=== PATIENT | male | born 1935 | race Caucasian/White ===

== ENCOUNTER 2017-12-02 08:22 | Emergency (ER) | payer MEDICARE, BC ==
[2017-12-02 08:52] VITALS: BP 132/66
--- NOTE | 2017-12-02 09:45 | UC ---
Elbow Pain - HPI Summary HPI Summary: 82 yo male lost balance and fell back onto bed last PM around sustained multiple skin tears no elbow joint pain last Td <10 yrs ago no hx DM - History of Current Complaint Chief Complaint: UCSkin Stated Complaint: S/P FALL LEFT ELBOW INJURY Time Seen by Provider: 12/02/17 09:06 Hx Obtained From: Patient Onset/Duration: Hours Pain Intensity: 0 Pain Scale Used: 0-10 Numeric Location Of Pain: Is Discrete @ Aggravating Factor(s): Movement Alleviating Factor(s): Rest Associated Signs And Symptoms: Positive: Bruising - Allergies/Home Medications Allergies/Adverse Reactions: Allergies Allergy/AdvReac Type Severity Reaction Status Date / Time No Known Allergies Allergy Verified 12/02/17 08:43 PMH/Surg Hx/FS Hx/Imm Hx Previously Healthy: Yes GI/ History: Diverticulitis - Surgical History Surgical History: None - Family History Known Family History: Positive: Hypertension - Social History Alcohol Use: "couple beers a day" Substance Use Type: None Smoking Status (MU): Never Smoked Tobacco - Immunization History Most Recent Tetanus Shot: "I haven't the slightest idea." Review of Systems Constitutional: Negative Skin: Bruising Eyes: Negative ENT: Negative Respiratory: Negative Cardiovascular: Negative Gastrointestinal: Negative Genitourinary: Negative Motor: Negative Neurovascular: Negative Musculoskeletal: Negative Neurological: Negative Psychological: Negative Is Patient Immunocompromised?: No All Other Systems Reviewed And Are Negative: Yes Physical Exam Triage Information Reviewed: Yes Appearance: Well-Appearing, No Pain Distress, Well-Nourished Vital Signs: Initial Vital Signs Temp 98.2 F 12/02/17 08:39 Pulse 66 12/02/17 08:39 Resp 14 12/02/17 08:39 BP 132/66 12/02/17 08:39 Pulse Ox 100 12/02/17 08:39 Vital Signs Reviewed: Yes Eyes: Positive: Conjunctiva Clear ENT: Positive: Hearing grossly normal. Negative: Nasal congestion, Nasal drainage, Tonsillar exudate, Trismus, Hoarse voice Neck: Positive: Supple, Nontender Respiratory: Positive: Lungs clear, Normal breath sounds, No respiratory distress Cardiovascular: Positive: RRR, No Murmur Bowel Sounds: Positive: Present Musculoskeletal Exam: Normal Musculoskeletal: Positive: ROM Intact, No Edema Neurological: Positive: Alert, Other: - tremors but no cogwheeling Skin Exam: Other - Multiple skin tears left arm proximal to elbow Procedures - Laceration/Wound Repair 1 Location: upper extremity Description: Linear Length, Depth and Shape: multiple skin tears with a total lenght of 12.5 cm Betadine Prep?: No Irrigated w/ Saline (ccs): 400 Laceration/Wound Explored: clean Closure: SteriStrips Elbow Pain Course/Dx - Differential Dx/Diagnosis Provider Diagnoses: skin tears left elbow. steristrip repair Discharge - Sign-Out/Discharge Documenting (check all that apply): Discharge/Admit/Transfer - Discharge Plan Condition: Stable Disposition: HOME Patient Education Materials: Hugh (ED) Referrals: No Primary Care Phys,NOPCP [Primary Care Provider] - Additional Instructions: leave strips on until they fall off keep dressing (wrap) on for 1-2 days return for any problems call for any questions see list for local MDs - Billing Disposition and Condition Condition: STABLE Disposition: Home
== END 2017-12-02 09:47 | disposition home or self-care (01) ==
LOC: UCCORT 08:22
DX: S50.902A Unspecified superficial injury of left elbow, initial encounter (principal); W18.39XA Other fall on same level, initial encounter; Y93.9 Activity, unspecified; Y92.003 Bedroom of unspecified non-institutional (private) residence as the place of occurrence of the external cause
CPT/HCPCS: 99202; G0463

== ENCOUNTER 2018-12-31 09:54 | Emergency (ER) | payer MEDICARE, BC ==
--- NOTE | 2018-12-31 10:13 | UC ---
[facility] General HPI - HPI Summary HPI Summary: Patient is a 83 year old male, who present today to the urgent care after she sustained a fall yesterday. He reports that he tripped on his feet at the tennis court and fell down scraping his left elbow and the left knee. Has some pain in the left elbow but denies much pain in the knee. He denies any other symptoms. Last tetanus shot was in 2012 - History of Current Complaint Stated Complaint: S/P FALL(12/30/18)-SCRAPES,BRUISES Time Seen by Provider: 12/31/18 10:10 Hx Obtained From: Patient - Allergy/Home Medications Allergies/Adverse Reactions: Allergies Allergy/AdvReac Type Severity Reaction Status Date / Time No Known Allergies Allergy Verified 12/31/18 10:24 Home Medications: Home Medications Aspirin 81 mg CHEW TAB* [Aspirin Low Dose TAB*] 81 mg PO DAILY 12/31/18 [ History Confirmed 12/31/18] Citalopram TAB* [CeleXA TAB*] 10 mg PO DAILY 12/31/18 [History Confirmed ] Donepezil HCl [Aricept] 5 mg PO DAILY 12/31/18 [History Confirmed 12/31/18] Terazosin HCl 10 mg PO DAILY 12/31/18 [History Confirmed 12/31/18] PMH/Surg Hx/FS Hx/Imm Hx - Additional Past Medical History Additional PMH: Past Medical History : BPH, dementia, depression, tremors of the hand Past Surgical History: No Past History of Procedure Family History : non contributory Social History : Daily beer, non smoker, no drug use. Lives with family his daughter for the past 1 year Previously Healthy: Yes - Surgical History Surgical History: None - Family History Known Family History: Positive: Hypertension, Non-Contributory - Social History Alcohol Use: "couple beers a day" Substance Use Type: None Smoking Status (MU): Never Smoked Tobacco - Immunization History Most Recent Tetanus Shot: "I haven't the slightest idea." Review of Systems All Other Systems Reviewed And Are Negative: Yes Constitutional: Positive: Negative Skin: Positive: Other - Skin avulsion of the left knee and left elbow Eyes: Positive: Negative ENT: Positive: Negative Respiratory: Positive: Negative Cardiovascular: Positive: Negative Gastrointestinal: Positive: Negative Genitourinary: Positive: Negative Motor: Positive: Negative Neurovascular: Positive: Negative Musculoskeletal: Positive: Arthralgia - Left elbow Neurological: Positive: Negative Psychological: Positive: Negative Is Patient Immunocompromised?: No Physical Exam - Summary Physical Exam Summary: Vital Signs Reviewed: Yes A+Ox3, no distress Eyes: Conjunctiva Clear ENT: Hearing grossly normal neck: supple Respiratory: Positive: No respiratory distress, No accessory muscle use Cardiovascular: skin color reflect adequate perfusion Musculoskeletal Exam: MENDEZ x 4 without difficulty Neurological: Positive: Alert, ambulatory without difficulty Psychological: Positive: Normal Response To Family Skin: Very Superficial Skin avulsion of the left lateral elbow is noted. No foreign body was identified after irrigation. No active bleeding. There is small skin avulsion/abrasion of the left lateral knee, no active bleeding is noted. Left elbow: Full range of motion, no swelling . some pain. Left knee: Full range of motion, no swelling. No pain Triage Information Reviewed: Yes Vital Signs Reviewed: Yes Diagnostics - Radiology No standard instances Radiology Interpretation Completed By: Radiologist - X-ray of the left elbow: Questionable cortical discontinuity along the coronoid process of the olecranon with a prominent anterior fat pad. Correlate with point tenderness. Repeat imaging in 7-10 days is recommended if pain persists. - EKG Summary of EKG Findings: X-ray of the left elbow :Questionable cortical discontinuity along the coronoid process of the olecranon with a. prominent anterior fat pad. Correlate with point tenderness. Repeat imaging in 7-10 days. is recommended if pain persists. Course/Dx - Course Course Of Treatment: During the visit today, we discussed the findings and further plan. Tetanus updated X-rays of the left elbow: Questionable cortical discontinuity along the coronoid process of the olecranon with a prominent anterior fat pad. Correlate with point tenderness. Repeat imaging in 7 -10 days is recommended if pain persists. Since the patient had left prior to the final report, plan to have the RN call him and discuss the the final x-ray report and have him follow up with orthopedics in a week Procedure note: Skin avulsion of the left elbow was approximated with skin adhesive and Steri-Strips. Skin avulsion of the left knee was debrided and dressed with antibiotics and nonadhesive dressing Wound care discussed We'll start prophylactic antibiotic, Keflex E prescribed to the pharmacy. He will follow-up with his primary care doctor in a week . Patient expressed understanding . - Diagnoses Provider Diagnosis: Avulsion of skin of left elbow, Avulsion, skin Discharge - Sign-Out/Discharge Documenting (check all that apply): Patient Departure All imaging exams completed and their final reports reviewed: No - Discharge Plan Condition: Stable Disposition: HOME Prescriptions: Cephalexin CAP* [Keflex CAP*] 500 mg PO BID 7 Days #14 cap Patient Education Materials: Laceration (DC), Skin Adhesive Care (ED) Referrals: Syeda Sellers NP [Primary Care Provider] - 1 Week Additional Instructions: Please start taking the medication as prescribed to the pharmacy . Wound care as discussed- avoid wetting . Monitor for any discharge or worsening Follow up with your primary care doctor in 1 week Return to Urgent care / ER if symptoms get worse. - Billing Disposition and Condition Condition: STABLE Disposition: Home
[2018-12-31 10:24] VITALS: BP 103/40
[2018-12-31] MEDS ORDERED: Tetan/Diph/Pertus SYR(Tdap)* 0.5 ML SYR(BOOSTRIX) use SYR contains LATEX IM ONE (10:54)
--- NOTE | 2018-12-31 12:05 | UC ---
- Progress Note Progress Note: Final x-ray report of the elbow: Questionable cortical discontinuity along the coronoid process of the olecranon with a prominent anterior fat pad. Correlate with point tenderness. Repeat imaging in 7 -10 days is recommended if pain persists. RN to call the patient and informed him of the results and recommend follow-up with orthopedics in 1 week Course/Dx - Diagnoses Provider Diagnoses: Avulsion of skin of left elbow, Avulsion, skin Discharge - Sign-Out/Discharge Documenting (check all that apply): Post-Discharge Follow Up All imaging exams completed and their final reports reviewed: No - Discharge Plan Condition: Stable Disposition: HOME Prescriptions: Cephalexin CAP* [Keflex CAP*] 500 mg PO BID 7 Days #14 cap Patient Education Materials: Laceration (DC), Skin Adhesive Care (ED) Referrals: Syeda Sellers NP [Primary Care Provider] - 1 Week Abi Rodriguez MD [Medical Doctor] - 1 Week Additional Instructions: Please start taking the medication as prescribed to the pharmacy . Wound care as discussed- avoid wetting . Monitor for any discharge or worsening Follow up with your primary care doctor in 1 week Return to Urgent care / ER if symptoms get worse. - Billing Disposition and Condition Condition: STABLE Disposition: Home
--- NOTE | 2018-12-31 12:05 | UC ---
- Progress Note Progress Note: Final x-ray report: Questionable cortical discontinuity along the coronoid process of the olecranon with a prominent anterior fat pad. Correlate with point tenderness. Repeat imaging in 7 -10 days is recommended if pain persists. Course/Dx - Diagnoses Provider Diagnoses: Avulsion of skin of left elbow, Avulsion, skin Discharge - Sign-Out/Discharge Documenting (check all that apply): Post-Discharge Follow Up All imaging exams completed and their final reports reviewed: Yes - Discharge Plan Condition: Stable Disposition: HOME Prescriptions: Cephalexin CAP* [Keflex CAP*] 500 mg PO BID 7 Days #14 cap Patient Education Materials: Laceration (DC), Skin Adhesive Care (ED) Referrals: Syeda Sellers NP [Primary Care Provider] - 1 Week Abi Rodriguez MD [Medical Doctor] - 1 Week Additional Instructions: Please start taking the medication as prescribed to the pharmacy . Wound care as discussed- avoid wetting . Monitor for any discharge or worsening Follow up with your primary care doctor in 1 week Return to Urgent care / ER if symptoms get worse. - Billing Disposition and Condition Condition: STABLE Disposition: Home
== END 2018-12-31 11:58 | disposition home or self-care (01) ==
LOC: UCCORT 09:54
DX: S81.012A Laceration without foreign body, left knee, initial encounter (principal); S51.012A Laceration without foreign body of left elbow, initial encounter; W01.0XXA Fall on same level from slipping, tripping and stumbling without subsequent striking against object, initial encounter; Y92.312 Tennis court as the place of occurrence of the external cause; Z23 Encounter for immunization
CPT/HCPCS: 12001; 90471; 90715; 99212; G0463

== ENCOUNTER 2019-06-11 18:43 | Emergency (ER) | payer MEDICARE, BC ==
--- NOTE | 2019-06-11 19:08 | ED ---
Head Injury - HPI Summary HPI Summary: The patient is an 83 y/o male arriving by ambulance to [facility] accompanied by family with a chief complaint of a mechanical fall tonight which resulted in an injury to the occiput. He reports that he was going to sit down on his walker, but he didnt realize there wasnt a seat, causing him to fall. He hit the posterior head, but he denies a headache now. He also denies any nausea or extremity pain, although he has an abrasion to the posterior left arm. There is unknown LOC, and the fall was unwitnessed. He is not currently on anticoagulants. He initially went to [facility], but the CT machine is not functioning at this time. PMHx: dementia, HTN, HLD. Nonsmoker, no EtOH, no substance use. Medications reviewed. Allergies noted. Level 5 Caveat secondary to dementia. - History Of Current Complaint Chief Complaint: EDHeadInjury Stated Complaint: FALL PER EMS Time Seen by Provider: 06/11/19 18:58 Hx Obtained From: Patient, Family/Craft Coordinator Hx From Patient Unobtainable Due To: Dementia - Level 5 Caveat Mechanism Of Injury: Fall From Height Of: - sitting position Onset/Duration: Started Hours Ago Severity Currently: Moderate Severity Initially: Mild Pain Intensity: 0 Pain Scale Used: 0-10 Numeric Location of Head Injury: Occipital Associated Signs And Symptoms: Other: - abrasion to left arm; Negative: nausea, headache, extremity pain; unknown LOC - Allergies/Home Medications Allergies/Adverse Reactions: Allergies Allergy/AdvReac Type Severity Reaction Status Date / Time No Known Allergies Allergy Verified 06/11/19 18:47 PMH/Surg Hx/FS Hx/Imm Hx Endocrine/Hematology History: Denies: Hx Diabetes Cardiovascular History: Reports: Hx Hypercholesterolemia, Hx Hypertension Neurological History: Reports: Hx Dementia Psychiatric History: Reports: Hx Depression - Surgical History Surgical History: Unable to Obtain/Confirm - patient level 5 caveat secondary to dementia Infectious Disease History: No Infectious Disease History: Denies: Traveled Outside the [place] in Last 30 Days - Family History Known Family History: Positive: Hypertension - Social History Alcohol Use: None Alcohol Amount: 2-4 beers qd Hx Substance Use: No Substance Use Type: Reports: None Hx Tobacco Use: No Smoking Status (MU): Never Smoked Tobacco Review of Systems Negative: Nausea Negative: Other - extremity pain Positive: Other - abrasion to posterior left arm Neurological: Other - injury to occipital head; unknown LOC Negative: Headache All Other Systems Reviewed And Are Negative: No - Comments Additional Review of Systems Comments: Level 5 Caveat secondary to dementia. Physical Exam - Summary Physical Exam Summary: Appearance: Well-appearing, Well-nourished, lying in bed comfortably Skin: Warm, dry, no obvious rash Eyes: sclera anicteric, no conjunctival pallor Head: No external signs of head trauma ENT: mucous membranes moist, pharynx appears normal Neck: Supple, nontender Respiratory: Clear to auscultation, no signs of respiratory distress Cardiovascular: Normal S1, S2. No murmurs. Normal distal pulses in tibial and radial bilaterally. Abdomen: Soft, nontender, normal active bowel sounds present Musculoskeletal: Normal, Strength/ROM Intact Neurological: A&Ox3, awake and alert, mentation is normal, speech is fluent and appropriate Psychiatric: affect is normal, does not appear anxious or depressed Triage Information Reviewed: Yes Vital Signs On Initial Exam: Initial Vitals Temp Pulse Resp BP Pulse Ox 98.0 F 66 15 132/85 97 06/11/19 18:44 06/11/19 18:44 06/11/19 18:44 06/11/19 18:44 06/11/19 18:44 Vital Signs Reviewed: Yes Completion Of Physical Exam Limited Due To: Dementia, Level 5 - Ely Coma Scale Best Eye Response: 4 - Spontaneous Best Motor Response: 6 - Obeys Commands Best Verbal Response: 5 - Oriented Coma Scale Total: 15 Procedures - Sedation Patient Received Moderate/Deep Sedation with Procedure: No Diagnostics - Vital Signs Vital Signs Temp Pulse Resp BP Pulse Ox 06/11/19 18:44 98.0 F 66 15 132/85 97 - Laboratory Lab Statement: Any lab studies that have been ordered have been reviewed, and results considered in the medical decision making process. - CT Brain CT CT Interpretation Completed By: Radiologist Summary of CT Findings: Impression: 1. No intracranial bleed, suspicious mass, or mass effect. Ventricles appear unremarkable. 2. There is low attenuation change in the white matter most consistent with chronic age related small vessel ischemic change. No acute territorial infarction is seen. These can be initially occult on head CT. ED physician has reviewed this report. Re-Evaluation - Re-Evaluation First Eval Re-Evaluation Time: 20:20 Comment: We discussed results and plan for discharge. Head Injury Course/Dx Course Of Treatment: 83 y/o male who has a history of dementia presents by ambulance from [facility] to [facility] after an unwitnessed mechanical fall in which the patient had attempted to sit on his walker but failed to realize there was not a seat there, resulting in a hit to the occipital head and unknown LOC. Denies any pain in the extremities or head now. Physical exam is negative for any external signs of head trauma. Brain CT is negative for acute findings for traumatic head injury. Patient will be discharged home. Family is agreeable with plan. - Diagnoses Provider Diagnoses: Fall Discharge ED - Sign-Out/Discharge Documenting (check all that apply): Patient Departure - Patient will be discharged home. - Discharge Plan Condition: Good Disposition: HOME Patient Education Materials: Fall Prevention for Older Adults (ED) Referrals: Syeda Sellers NP [Primary Care Provider] - Additional Instructions: The CT scan of your head was negative for any brain injury, so it is safe for you to return home. - Billing Disposition and Condition Condition: GOOD Disposition: Home - Attestation Statements Document Initiated by Rajendra: Yes Documenting Scribe: Ana Hillman Provider For Whom Rajendra is Documenting (Include Credential): Dr. Noam Morales MD Scribe Attestation: Ana Jules scribed for Dr. Noam Morales MD on 06/12/19 at 0125. Scribe Documentation Reviewed: Yes Provider Attestation: The documentation as recorded by the Ana jolley accurately reflects the service I personally performed and the decisions made by me, Dr. Noam Morales MD Status of Scribe Document: Viewed
[2019-06-11 20:29] VITALS: BP 132/63
== END 2019-06-11 20:29 | disposition home or self-care (01) ==
LOC: ED 18:43
DX: S09.90XA Unspecified injury of head, initial encounter (principal); S40.812A Abrasion of left upper arm, initial encounter; W19.XXXA Unspecified fall, initial encounter; Y93.89 Activity, other specified; Y92.9 Unspecified place or not applicable; F03.90 Unspecified dementia, unspecified severity, without behavioral disturbance, psychotic disturbance, mood disturbance, and anxiety; I10 Essential (primary) hypertension; F32.9 Major depressive disorder, single episode, unspecified; Z79.82 Long term (current) use of aspirin
CPT/HCPCS: 70450; 99283

== ENCOUNTER 2019-08-28 11:30 | Emergency (ER) | payer MEDICARE, BC ==
[2019-08-28] MEDS ORDERED: NS 0.9% 1000 ML** 1,000 ML IV ONE (11:43)
--- NOTE | 2019-08-28 11:43 | ED ---
Complex/Multi-Sys Presentation - HPI Summary HPI Summary: Patient is an 83 y/o M presenting to the ED via EMS arriving from [facility] for a chief complaint of seizure that occurred on 08/28/19. Per EMS, patient has confusion and complains of a headache and fatigue. 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 Patient also has a tremor of the bilateral UE that is unchanged from baseline. Patient denies fever, chest pain or pressure, shortness of breath, cough, abdominal pain, nausea, or vomiting. No aggravating or alleviating factors are reported. He does not recall if he has had dysuria or bladder infections in the past. PMHx is significant for Parkinson's disease and dementia, but has no history of seizures. A history of HTN, DM, KS, or CVA is denied. He denies tobacco use. - History Of Current Complaint Time Seen by Provider: 08/28/19 11:32 Hx Obtained From: Patient Onset/Duration: Sudden Onset, Resolved Timing: Constant Severity Currently: Moderate Severity Initially: Moderate Character: Typical Headache Aggravating Factor(s): Nothing Alleviating Factor(s): Nothing Associated Signs And Symptoms: Positive: Confusion, Headache. Negative: SOB, Cough, Chest Pain, Nausea, Vomiting, Abdominal Pain, Fever - Allergies/Home Medications Allergies/Adverse Reactions: Allergies Allergy/AdvReac Type Severity Reaction Status Date / Time No Known Allergies Allergy Verified 06/11/19 18:47 Home Medications: Home Medications Aspirin 81 mg CHEW TAB* [Aspirin Low Dose TAB*] 81 mg PO DAILY 12/31/18 [ History Confirmed 08/28/19] Citalopram TAB* [CeleXA TAB*] 10 mg PO DAILY 12/31/18 [History Confirmed ] Donepezil HCl [Aricept] 5 mg PO DAILY 12/31/18 [History Confirmed 08/28/19] Terazosin HCl 10 mg PO DAILY 12/31/18 [History Confirmed 08/28/19] Acetaminophen TAB* [Tylenol TAB*] 650 mg PO Q4H PRN 08/28/19 [History Confirmed 08/28/19] Bismuth Subsalicylate [Bismatrol] 15 ml PO Q4H PRN 08/28/19 [History Confirmed 08/28/19] Mag Hydrox/Aluminum Hyd/Simeth [Antacid Anti-Gas Liquid] 15 ml PO Q4H PRN [History Confirmed 08/28/19] Magnesium Hydroxide LIQ* [Milk of Magnesia LIQ*] 30 ml PO DAILY PRN 08/28/19 [ History Confirmed 08/28/19] Nitrofurantoin Macrocrystals* [Macrodantin 100 mg*] 100 mg PO BID 08/28/19 [ History Confirmed 08/28/19] guaiFENesin 100 mg/5 ml LIQ [Robitussin 100 mg/5ml LIQ] 10 ml PO Q4H PRN [History Confirmed 08/28/19] PMH/Surg Hx/FS Hx/Imm Hx Previously Healthy: Yes Endocrine/Hematology History: Denies: Hx Diabetes Cardiovascular History: Reports: Hx Hypercholesterolemia, Hx Hypertension Denies: Hx Myocardial Infarction Sensory History: Denies: Hx Legally Blind, Hx Deafness Opthamlomology History: Denies: Hx Legally Blind EENT History: Denies: Hx Deafness Neurological History: Reports: Hx Dementia, Other Neuro Impairments/Disorders - Parkinson's Disease Denies: Hx CVA Psychiatric History: Reports: Hx Depression - Surgical History Surgical History: None Surgery Procedure, Year, and Place: None Infectious Disease History: No Infectious Disease History: Denies: Traveled Outside the [place] in Last 30 Days - Family History Known Family History: Positive: Hypertension - Social History Occupation: Retired Lives: At [employer] Alcohol Use: None Alcohol Amount: 2-4 beers qd Hx Substance Use: No Substance Use Type: Reports: None Hx Tobacco Use: No Smoking Status (MU): Never Smoked Tobacco Review of Systems Positive: Fatigue. Negative: Fever Negative: Chest Pain Negative: Shortness Of Breath, Cough Negative: Abdominal Pain, Vomiting, Nausea Positive: Other - Positive tremor of the bilateral UE Neurological/Mental Status: Other - Positive confusion Positive: Headache All Other Systems Reviewed And Are Negative: Yes Physical Exam - Summary Physical Exam Summary: Constitutional: Well-developed, Well-nourished, Alert. (-) Distressed Skin: Warm, Dry HENT: Normocephalic; Atraumatic Eyes: Conjunctiva normal Neck: Musculoskeletal ROM normal neck. (-) JVD, (-) Stridor, (-) Tracheal deviation Cardio: Rhythm regular, rate normal, Heart sounds normal; Intact distal pulses; The pedal pulses are 2+ and symmetric. Radial pulses are 2+ and symmetric. (-) Murmur Pulmonary/Chest wall: Effort normal. (-) Respiratory distress, (-) Wheezes, (-) Rales Abd: Soft, (-) tenderness, (-) Distension, (-) Guarding, (-) Rebound Musculoskeletal: (-) Edema Lymph: (-) Cervical adenopathy Neuro: Awake, Oriented to person only, answering questions appropriately, no focal deficits, bilateral UE resting tremor noted Psych: Mood and affect Normal Triage Information Reviewed: Yes Vital Signs Reviewed: Yes - Ely Coma Scale Best Eye Response: 4 - Spontaneous Best Motor Response: 6 - Obeys Commands Best Verbal Response: 4 - Confused Coma Scale Total: 14 Glascow Coma Scale Comments: Baseline is dementia. Procedures - Sedation Patient Received Moderate/Deep Sedation with Procedure: No Diagnostics - Laboratory Result Diagrams: 08/28/19 12:14 08/28/19 12:14 Lab Statement: Any lab studies that have been ordered have been reviewed, and results considered in the medical decision making process. - CT Brain CT CT Interpretation Completed By: Radiologist Summary of CT Findings: Brain CT IMPRESSION: NO ACUTE INTRACRANIAL PATHOLOGY. CHRONIC SMALL VESSEL ISCHEMIC CHANGE. Reviewed by Dr. Arreola. - EKG 12:17 Cardiac Rate: Bradycardia - 52 BPM EKG Rhythm: Sinus Bradycardia ST Segment: Normal Ectopy: None Summary of EKG Findings: EKG at 12:17 shows sinus bradycardia with 52 BPM, PVCs , no STEMI. Dr. Arreola has reviewed and interpreted this EKG. Complex Multi-Symp Course/Dx Course Of Treatment: Patient is an 83 y/o M presenting to the ED via EMS arriving from [facility] for a chief complaint of seizure that occurred on . Per EMS, patient has confusion and complains of a headache and fatigue. Patient also has a tremor of the bilateral UE that is unchanged from baseline. Patient denies fever, chest pain or pressure, shortness of breath, cough, abdominal pain, nausea, or vomiting. PMHx is significant for Parkinson's disease and dementia, but has no history of seizures. A history of HTN, DM, KS, or CVA is denied. On exam, awake, oriented to person only, answering questions appropriately, no focal deficits, bilateral UE resting tremor noted. In the ED course, patient was given IV fluids. EKG at 12:17 shows sinus bradycardia with 52 BPM, PVCs, no STEMI. Brain CT IMPRESSION: NO ACUTE INTRACRANIAL PATHOLOGY. CHRONIC SMALL VESSEL ISCHEMIC CHANGE. All other abnormal lab results are not pertinent to current cc. Patient will be discharged with a diagnosis of dementia, generalzied weakness, and headache. Follow up with PCP in 2-3 days. - Diagnoses Provider Diagnoses: Dementia, Generalized weakness, Headache Discharge ED - Sign-Out/Discharge Documenting (check all that apply): Patient Departure - Discharge - Discharge Plan Condition: Stable Disposition: HOME Patient Education Materials: Weakness (ED) Referrals: Syeda Sellers NP [Primary Care Provider] - Additional Instructions: RETURN TO THE EMERGENCY DEPARTMENT FOR CHANGING OR WORSENING SYMPTOMS. Follow up with your primary care physician in 2-3 days. - Billing Disposition and Condition Condition: STABLE Disposition: Home - Attestation Statements Document Initiated by Elíasibe: Yes Documenting Scribe: Gunjan Morley Provider For Whom Scribe is Documenting (Include Credential): Louis Arreola DO Scribe Attestation: Gunjan Jules scribed for Louis Arreola DO on 08/28/19 at 1541. Scribe Documentation Reviewed: Yes Provider Attestation: The documentation as recorded by the Gunjan jolley accurately reflects the service I personally performed and the decisions made by Louis butcher DO Status of Scribadelia Document: Viewed
[2019-08-28 12:28] LABS: ABS Basophils 0.1 10^3/ul (0-0.2); ABS Lymphocytes 0.7 10^3/ul (1.0-4.8); ABS Monocytes 0.5 10^3/ul (0-0.8); ABS Neutrophils 7.4 10^3/ul (1.5-7.7); Eosinophil % 0.3 %; Hematocrit 33 % (42-52); Hemoglobin 10.6 g/dL (14.0-18.0); Lymphocyte % 8.1 %; Mean Corpuscular HGB Conc 32 g/dL (31-36); Mean Corpuscular Hemoglobin 21 pg (27-31); Mean Corpuscular Volume 66 fL (80-94); Mean Platelet Volume 7.9 fL (7.4-10.4); Nucleated Red Blood Cells % 0.1; Platelet Count 237 10^3/uL (150-450); Red Blood Count 4.97 10^6 /uL (4.18-5.48); Red Cell Distribution Width 16 % (10-15); White Blood Count 8.7 10^3/uL (3.5-10.8)
--- OUTSIDE RECORDS SUMMARY | 2019-08-28 12:29 | XMS REPORT | Continuity of Care Document ---
:1935 External Reference #:[id number] Author Name Jess Khan M.D. Address [address] [facility] [address] [place] [address] Care Team Providers Name Role Phone Syeda Sellers PNP-BC, FNP, Ibclc Care Team Information Television Agent [phone] - Family Problems Active Problems Provider Date Benign essential hypertension Syeda Sellers PNP-BC, FNP, Onset: 12/14/2017 Ibclc Hyperlipidemia Syeda Sellers PNP-BC, FNP, Onset: 12/14/2017 Ibclc Urinary tract infectious disease Jess Khan M.D. 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 Ibclc Social History Type Date Description Comments Sex Unknown ETOH Use Currently consumes alcohol ETOH Use Currently consumes alcohol drinking 2 beers daily Tobacco Use Reviewed: 12/14/17 Patient denies history of smoking Smoking Status Reviewed: 07/31/19 Patient denies history of smoking Allergies, Adverse Reactions, Alerts Description No Known Drug Allergies Medications Active Medications SIG Qnty Indications Ordering Provider Date Enable Bar To use at [place] 1units R53.1 Kelly Manzanares FNP 03/23/2019 Place for safety and fall prevention R29.6 Citalopram Hydrobromide 1 by mouth every 90tabs F33.0 Syeda Sellers, 12/26 10mg day PNP-BC, SAXOPHONE ASSEMBLER, Ibclc Tablets Terazosin HCL 1 by mouth every 90caps N40.1 Syeda Sellers, 10mg Capsules day PNP-BC, SAXOPHONE ASSEMBLER, Ibclc Donepezil HCL 1 by mouth every 90tabs F02.80 Syeda Sellers, 5mg Tablets day PNP-BC, SAXOPHONE ASSEMBLER, Ibclc Aspirin Adult Low Dose 1 by mouth every 90tabs Syeda Sellers, 81mg day PNP-BC, SAXOPHONE ASSEMBLER, Ibclc Tablets DR History Medications Lidocaine apply thin layer 60gm B02.9 Kelly Manzanares, 06/14/2019 - 4% Cream to right upper SAXOPHONE ASSEMBLER 06/29/2019 back lesions as needed for shingles pain Valacyclovir HCL 2 tabs by mouth 42tabs B02.9 Kelly Manzanares, 06/14/2019 - 500mg three times a day SAXOPHONE ASSEMBLER 06/29/2019 Tablets for 7 days. Medications Administered in Office Medication SIG Qnty Indications Ordering Provider Date PPD Family Nurse 03/08/2019 Injection Syeda Rosas PNP-BC, 12/26/2018 Injection SAXOPHONE ASSEMBLER, Ibclc Nena Smith MD 04/11/2018 Injection MARYCARMEN Family Nurse 04/11/2018 Injection Vitamin B12 Injection 1000 Syeda Sellers PNP-BC, 01/25/2018 mcg/Ml SAXOPHONE ASSEMBLER, Ibclc Injection Vitamin B12 Injection 1000 Syeda Sellers PNP-BC, 12/14/2017 mcg/Ml SAXOPHONE ASSEMBLER, Ibclc Injection Immunizations CPT Code Status Date Vaccine Lot # [id number] Given 12/26/2018 Pneumococcal Conjugate Vaccine 13 Valent For [id number] Intramuscular Use [id number] Given 04/07/2018 Influenza High Dose [id number] Vital Signs Date Vital Result Comment 07/31/2019 3:12pm BP Systolic Sitting Left Arm 110 mmHg BP Diastolic Sitting Left Arm 80 mmHg Body Temperature 97.6 F Heart Rate 70 /min Respiratory Rate 16 /min Height 70 inches 5'10" Weight 144.00 lb Pain Level 0 BMI (Body Mass Index) 20.7 kg/m2 BSA (Body Surface Area) 1.82 m2 [place] body weight in kilograms 75 kg 07/27/2019 1:22pm BP Systolic 120 mmHg BP Diastolic 74 mmHg Body Temperature 98.7 F Heart Rate 56 /min Respiratory Rate 18 /min Height 70 inches 5'10" Weight 151.00 lb BMI (Body Mass Index) 21.7 kg/m2 BSA (Body Surface Area) 1.85 m2 [place] body weight in kilograms 75 kg O2 % BldC Oximetry 96 % Results Test Acquired Date Facility Test Result H/L Range Note Urinalysis With 07/21/2019 [facility] Urine Color Yellow Yellow [address] [place] [address] [phone] Urine Clarity Slightly Cloudy Clear Urine Glucose - Dipstick NEGATIVE mg/dL Negative Urine Bilirubin - Dipstick NEGATIVE Negative Urine Ketone NEGATIVE mg/dL Negative Urine Specific [place] 1.016 Normal 1.010-1.030 Urine Blood TRACE Negative Urine PH 6.0 Low 6.5-7.5 Urine Protein - Dipstick TRACE mg/dL Negative Urine Urobilinogen - Dipstick < 2.0 mg/dL < 2.0 Urine Nitrite - Dipstick NEGATIVE Negative Urine Leuk Esterase LARGE Abnormal Negative Urine RBC 11-20 rbc/hpf Abnormal 0-2 Urine WBC >50 wbc/hpf 0-5 Urine Epithelial Cells MANY /lpf Abnormal None Seen Urine Bacteria MODERATE Abnormal None Seen Urine Mucus SMALL None Seen Source: URINE, CLEAN CAT <SEE NOTE> 2 Culture If 07/21/2019 [facility] Culture If CULTURE TO 3 Indicated Comment [address] Indicated Comment FOLLO <[place] [address] NOTE> [phone] Source: URINE, CLEAN CAT <SEE NOTE> 4 Urine 07/21/2019 [facility] Urine STAPHYLOCOCCUS A Abnormal [address] Culture <SEE NOTE> [place], [place] [id number] [phone] Quantity 10,000 - 50,000 <SEE NOTE> 6 Ast-GP67 07/21/2019 [facility] Penicillin G >=0.[address] [place] [address] [phone] Oxacillin <=0.25 Susceptible Tetracycline <=1 Susceptible Nitrofurantoin <=16 Susceptible Trimethoprim/Sulfamethoxazole <=10 Susceptible Gentamicin <=0.5 Susceptible Ciprofloxacin <=0.5 Susceptible Moxifloxacin <=0.25 Susceptible Levofloxacin 0.25 Susceptible Vancomycin <=0.5 Susceptible Comprehensive Metabolic 07/21/2019 [facility] Glucose 115 mg/dL High 74-[address] [place] [address] [phone] BUN 17 mg/dL Normal 7-18 Creatinine 0.9 mg/dL Normal 0.6-1.3 Glom Filtration Rate, Estimate >60 mL/min >60 If >60 mL/min >60 7 BUN/Creat 18.8 ratio Sodium 136 mmol/L Normal 136-145 Potassium 4.1 mmol/L Normal 3.5-5.1 Chloride 104 mmol/L Normal 98-107 Carbon Dioxide 30 mmol/L Normal 21-32 Anion Gap 2 mEq/L Low 8-16 Calcium 8.3 mg/dL Low 8.5-10.1 Total Protein 6.3 g/dL Low 6.4-8.2 Albumin 3.3 g/dL Low 3.4-5.0 Globulin 3.0 g/dL Normal 1.9-4.3 Alb/Glob 1.1 ratio Bilirubin,Total 0.6 mg/dL Normal 0.2-1.0 Sgot/Ast 14 U/L Low 15-37 8 SGPT/Alt 17 U/L Normal 12-78 Alkaline Phosphatase 58 U/L Normal 45-117 Laboratory test 07/21/2019 [facility] Troponin-I < 0.015 [address] ng/[place] [address] [phone] CBC W/Automated 07/21/2019 [facility] White Blood 5.7 K/uL Normal 3.4-[address] Count 0.5 [place] [address] [phone] Red Blood Count 5.05 M/uL Normal 4.20-5.80 Hemoglobin 10.7 gm/dL Low 12.8-17.0 Hematocrit 33.6 % Low 38.0-48.0 Mean Cell Volume 66.5 fl Low 80.0-96.0 Mean Corpuscular HGB 21.2 pg Low 27.0-33.0 Mean Corpuscular HGB Conc 31.8 g/dL Normal 31.7-36.0 Platelet Count 258 K/uL Normal 155-360 Red Cell Distri Width SD 39.4 fl Normal 36-51 Red Cell Distri Width %CV 17.1 % High 11.6-15.8 Mean Platelet Volume 9.4 fl Normal 6.6-10.6 Neut% 72.2 % Normal 33.0-73.0 Lymph % 14.9 % Low 20.0-42.0 [place] % 9.9 % Normal 0.0-10.0 Eo% 1.4 % Normal 0.0-6.6 Bas% 1.1 % Normal 0.0-1.1 Immature Grans 0.5 % Normal 0.0-5.0 NRBC % 0.0 /100WBC < 10/ 100 WBC Neut# 4.08 K/uL Normal 1.8-7.0 Lymph # 0.84 K/uL Low 1.0-4.0 [place] # 0.56 K/uL Normal 0.0-0.8 Eos # 0.08 K/uL Normal 0.0-0.5 Baso # 0.06 K/uL Normal 0.0-0.1 Immature Grans Absolute 0.03 K/uL NRBC # 0.00 K/uL Urine Dipstick 06/29/2019 [facility] Ua Leuko - Negative Ua Nitrite - Negative Ua Urobilinogen .2 0.2 - 1.0 E.U./dL Ua Protein - Negative Ua PH 6 Low 6.5-7.5 Ua Blood - Negative Ua Specific [place] 1.025 1.010-1.030 Ua Ketones - Negative Ua Bilirubin - Negative Ua Glucose - Negative RBC Morphology Only 06/21/2019 [facility] Poikilocytosis 2+ [address] [place] [address] [phone] Schistocytes 1+ Target Cells 1+ Ovalocytes 1+ Elliptocytes 0-1+ [place] Cells 0-1+ Acanthocytes 1+ Comment (SEE NOTE) 11 CBC W/Automated 06/21/2019 [facility] White Blood 6.5 K/uL Normal 3.4-10.[address] [place] [address] [phone] Red Blood Count 4.74 M/uL Normal 4.20-5.80 Hemoglobin 10.0 gm/dL Low 12.8-17.0 Hematocrit 31.0 % Low 38.0-48.0 Mean Cell Volume 65.4 fl Low 80.0-96.0 Mean Corpuscular HGB 21.1 pg Low 27.0-33.0 Mean Corpuscular HGB Conc 32.3 g/dL Normal 31.7-36.0 Platelet Count 297 K/uL Normal 155-360 Red Cell Distri Width SD 38.2 fl Normal 36-51 Red Cell Distri Width %CV 17.0 % High 11.6-15.8 Mean Platelet Volume 10.1 fl Normal 6.6-10.6 Neut% 74.6 % High 33.0-73.0 Lymph % 12.0 % Low 20.0-42.0 [place] % 10.5 % High 0.0-10.0 Eo% 1.5 % Normal 0.0-6.6 Bas% 0.8 % Normal 0.0-1.1 Immature Grans 0.6 % Normal 0.0-5.0 NRBC % 0.0 /100WBC < 10/ 100 WBC Neut# 4.84 K/uL Normal 1.8-7.0 Lymph # 0.78 K/uL Low 1.0-4.0 [place] # 0.68 K/uL Normal 0.0-0.8 Eos # 0.10 K/uL Normal 0.0-0.5 Baso # 0.05 K/uL Normal 0.0-0.1 Immature Grans Absolute 0.04 K/uL NRBC # 0.00 K/uL Laboratory test finding 06/21/2019 [facility] CK 57 U/L Normal 39-308 [address] [place] [address] [phone] Troponin-I < 0.015 ng/mL 12 Comprehensive 06/21/2019 [facility] Glucose 96 mg/dL Normal 74-106 Metabolic Panel [address] [place] [address] [phone] BUN 16 mg/dL Normal 7-18 Creatinine 0.9 mg/dL Normal 0.6-1.3 Glom Filtration Rate, Estimate >60 mL/min >60 If >60 mL/min >60 13 BUN/Creat 17.7 ratio Sodium 135 mmol/L Low 136-145 Potassium 4.4 mmol/L Normal 3.5-5.1 Chloride 104 mmol/L Normal 98-107 Carbon Dioxide 28 mmol/L Normal 21-32 Anion Gap 3 mEq/L Low 8-16 Calcium 8.1 mg/dL Low 8.5-10.1 Total Protein 6.1 g/dL Low 6.4-8.2 Albumin 2.9 g/dL Low 3.4-5.0 Globulin 3.2 g/dL Normal 1.9-4.3 Alb/Glob 0.9 ratio Bilirubin,Total 0.3 mg/dL Normal 0.2-1.0 Sgot/Ast 19 U/L Normal 15-37 SGPT/Alt 17 U/L Normal 12-78 Alkaline Phosphatase 67 U/L Normal 45-117 Urine Culture 06/21/2019 [facility] Urine Culture URETHRAL KENA [address] [place], [place] [id number] [phone] Quantity 10,000 - 50,000 <SEE NOTE> 14 Culture If 06/21/2019 [facility] Culture If CULTURE TO 15 Indicated Comment [address] [facility] Indicated Comment FOLLO <[place] [address] NOTE> [phone] Source: URINE, CLEAN CAT <SEE NOTE> 16 Urinalysis With 06/21/2019 [facility] Urine Color Light-Yellow Yellow Microscopic [address] [place] [address] [phone] Urine Clarity Slightly Cloudy Clear Urine Glucose - Dipstick NEGATIVE mg/dL Negative Urine Bilirubin - Dipstick NEGATIVE Negative Urine Ketone NEGATIVE mg/dL Negative Urine Specific [place] 1.014 Normal 1.010-1.030 Urine Blood NEGATIVE Negative Urine PH 6.0 Low 6.5-7.5 Urine Protein - Dipstick NEGATIVE mg/dL Negative Urine Urobilinogen - Dipstick < 2.0 mg/dL < 2.0 Urine Nitrite - Dipstick NEGATIVE Negative Urine Leuk Esterase LARGE Abnormal Negative Urine RBC 3-5 rbc/hpf 0-2 Urine WBC >50 wbc/hpf 0-5 Urine Mucus SMALL None Seen Source: URINE, CLEAN CAT <SEE NOTE> 17 1 POSSIBLE SYNCOPAL EPISODE 2 URINE, CLEAN CATCH 3 CULTURE TO FOLLOW 4 URINE, CLEAN CATCH 5 STAPHYLOCOCCUS AUREUS 6 10,000 - 50,000 CFU/mL 7 Note: Persistent reduction for 3 months or more in an eGFR <60 mL/min/1.73 m2 defines CKD. Patients with eGFR values >/=60 mL/min/1.73 m2 may also have CKD if evidence of persistent proteinuria is present. The original MDRD equation for estimated GFR is not valid for patients less than 18 years of age. Additional information may be found at www.kdoqi.org. 8 Values below the stated reference ranges of AST and ALT can be seen in normal populations. Clinical correlation is suggested. 9 0.0 - 0.045 ng/mL: Normal 0.046 - 0.5 ng/mL: Suggestive 0.6 - 1.5 ng/mL: Consistent 10 UNWITNESSED FALL 11 Instrument flagged sample for slide review. Less than 10% Bands seen, no other immature WBC's seen. Platelet estimate = NORMAL 12 0.0 - 0.045 ng/mL: Normal 0.046 - 0.5 ng/mL: Suggestive 0.6 - 1.5 ng/mL: Consistent 13 Note: Persistent reduction for 3 months or more in an eGFR <60 mL/min/1.73 m2 defines CKD. Patients with eGFR values >/=60 mL/min/1.73 m2 may also have CKD if evidence of persistent proteinuria is present. The original MDRD equation for estimated GFR is not valid for patients less than 18 years of age. Additional information may be found at www.kdoqi.org. 14 10,000 - 50,000 CFU/mL 15 CULTURE TO FOLLOW 16 URINE, CLEAN CATCH 17 URINE, CLEAN CATCH Procedures Date Code Description Status 11/28/2017 [id number] Colonoscopy Completed Medical Devices Description No Information Available Encounters Type Date Location Provider Dx Diagnosis Office Visit 07/27/2019 Family Medicine Syeda Sellers, N39.0 Urinary tract 1:10p [address] PNP-BC, SAXOPHONE ASSEMBLER, infection, site Ibclc not specified N40.1 Benign prostatic hyperplasia with lower urinary tract symp Office Visit 06/29/2019 [facility] [place] N39.0 Urinary tract 1:00p Medicine Fito Antonio, SAXOPHONE ASSEMBLER infection, site RD not specified B02.9 [place]oster without complications Office Visit 06/14/2019 9:00a [facility] Kelly Hussein, B02.[address] SAXOPHONE ASSEMBLER complications M54.6 Pain in thoracic spine R21 Rash and other nonspecific skin eruption Z91.81 History of falling Office Visit 03/10/2019 1:30p [facility] Family Nurse Z11.1 Encounter for [place] screening for respiratory tuberculosis Assessments Date Code Description Provider 07/31/2019 N39.0 Urinary tract infection, site not Jess Khan M.D. specified 07/31/2019 N40.1 Benign prostatic hyperplasia with Erin, Mahmoud, M.D. lower urinary tract symptoms 07/27/2019 N39.0 Urinary tract infection, site not Syeda Sellers PNP-BC, SAXOPHONE ASSEMBLER, specified Ibclc 07/27/2019 N40.1 Benign prostatic hyperplasia with Syeda Sellers PNP-BC, SAXOPHONE ASSEMBLER, lower urinary tract symptoms Ibclc 06/29/2019 N39.0 Urinary tract infection, site not Marisela Waite FNP specified 06/29/2019 B02.9 Zoster without complications Marisela [place] FNP 06/14/2019 B02.9 [place] without complications Kelly Manzanares FNP 06/14/2019 M54.6 Pain in thoracic spine Kelly Manzanares FNP 06/14/2019 R21 Rash and other nonspecific skin Kelly Manzanares FNP eruption 06/14/2019 Z91.81 History of falling Kelly Manzanares FNP 03/10/2019 Z11.1 Encounter for screening for Nena Jimenez MD respiratory tuberculosis 03/10/2019 Z11.1 Encounter for screening for Family Nurse respiratory tuberculosis 03/08/2019 Z11.1 Encounter for screening for Nena Jimenez MD respiratory tuberculosis 03/08/2019 Z11.1 Encounter for screening for Family Nurse respiratory tuberculosis Plan of Treatment No Information Available Functional Status Description No Information Available Mental Status Description No Information Available Referrals Refer to Reason for Referral Status Appt Date Jess Khan M.D. UTI's with hx of BPH Scheduled 07/31/2019 [address], [place] [address] [phone]
--- OUTSIDE RECORDS SUMMARY | 2019-08-28 12:29 | XMS REPORT | Continuity of Care Document ---
:1935 External Reference #:[id number] Author Name Jess Khan M.D. (transmitted by agent of provider Gloria Vega) Address [address] [facility] [address] [place] [address] Care Team Providers Name Role Phone Syeda Sellers PNP-BC, FNP, Ibclc Care Team Information Maitre D - Family Problems Active Problems Provider Date [...] Provider Date Enable Bar To use at [place] 1units R53.1 Kelly Manzanares FNP 03/23/2019 Place for safety and fall prevention R29.6 Citalopram Hydrobromide 1 by mouth every 90tabs F33.0 Syeda Sellers, 12/26 10mg day PNP-BC, [employer], Ibclc Tablets Terazosin HCL 1 by mouth every 90caps N40.1 Syeda Sellers, 10mg Capsules day PNP-BC, [employer], Ibclc Donepezil HCL 1 by mouth every 90tabs F02.80 Syeda Sellers, 5mg Tablets day PNP-BC, [employer], Ibclc Aspirin Adult Low Dose 1 by mouth every 90tabs Syeda Sellers, 81mg day PNP-BC, [employer], Ibclc Tablets DR [place]olis Medications Lidocaine apply thin layer 60gm B02.9 Kelly Manzanares, 06/14/2019 - 4% Cream to right upper [employer] 06/29/2019 back lesions as needed for shingles pain Valacyclovir HCL 2 tabs by mouth 42tabs B02.9 Kelly Manzanares, 06/14/2019 - 500mg three times a day [employer] 06/29/2019 Tablets for 7 days. Medications Administered in Office Medication SIG Qnty Indications Ordering Provider Date PPD Family Nurse 03/08/2019 Injection Syeda Rosas PNP-BC, 12/26/2018 Injection [employer], Ibclc Nena Smith MD 04/11/2018 Injection MARYCARMEN Family Nurse 04/11/2018 Injection Vitamin B12 Injection 1000 Syeda Sellers PNP-BC, 01/25/2018 mcg/Ml [employer], Ibclc Injection Vitamin B12 Injection 1000 Syeda Sellers PNP-BC, 12/14/2017 mcg/Ml [employer], Ibclc Injection Immunizations CPT Code Status Date Vaccine Lot # [id number] Given 12/26/2018 Pneumococcal Conjugate Vaccine 13 Valent For [id number] Intramuscular Use 99562 Given 04/07/2018 Influenza High Dose [id number] Vital Signs Date Vital Result Comment 07/31/2019 3:12pm BP Systolic Sitting Left Arm 110 mmHg BP Diastolic Sitting Left Arm 80 mmHg Body Temperature 97.6 F Heart Rate 70 /min Respiratory Rate 16 /min Height 70 inches 5'10" Weight 144.00 lb Pain Level 0 BMI (Body Mass Index) 20.7 kg/m2 BSA (Body Surface Area) 1.82 m2 [place] body weight in kilograms 75 kg 07/27/2019 1:22pm BP Systolic 120 mmHg BP Diastolic 74 mmHg Body Temperature 98.7 F Heart Rate 56 /min Respiratory Rate 18 /min Height 70 inches 5'10" Weight 151.00 lb BMI (Body Mass Index) 21.7 kg/m2 BSA (Body Surface Area) 1.85 m2 [place] body weight in kilograms 75 kg O2 % BldC Oximetry 96 % Results Test Acquired Date Facility Test Result H/L Range Note Urine Dipstick 07/31/2019 [facility] In[facility] Ua Color Yellow Yellow Ua Clarity Clear Clear Ua Leuko Negative Negative Ua Nitrite Negative Negative Ua Urobilinogen 0.2 0.2 - 1.0 E.U./dL Ua Protein 15 High Negative Ua PH 6.0 Low 6.5-7.5 Ua Blood Negative Negative Ua Specific [place] 1.025 1.010-1.030 Ua Ketones Negative Negative Ua Bilirubin Negative Negative Ua Glucose Negative Negative Urine Culture 07/31/2019 [facility] Urine Culture NO GROWTH: 1, [address] FINAL <[place] [address] NOTE> [phone] CBC 07/21/2019 [facility] White Blood 5.7 K/uL Normal 3.4-1 3 W/Automated [address] Count 0.5 [place] [address] [phone] Red Blood Count 5.05 M/uL Normal 4.20-5.80 [...] 33.0-73.0 Lymph % 14.9 % Low 20.0-42.0 [place] % 9.9 % Normal 0.0-10.0 Eo% 1.4 % Normal 0.0-6.6 Bas% 1.1 % Normal 0.0-1.1 Immature Grans 0.5 % Normal 0.0-5.0 NRBC % 0.0 /100WBC < 10/ 100 WBC Neut# 4.08 K/uL Normal 1.8-7.0 Lymph # 0.84 K/uL Low 1.0-4.0 [place] # 0.56 K/uL Normal 0.0-0.8 Eos # 0.08 K/uL Normal 0.0-0.5 Baso # 0.06 K/uL Normal 0.0-0.1 Immature Grans Absolute 0.03 K/uL NRBC # 0.00 K/uL Laboratory test 07/21/2019 [facility] Troponin-I < 0.015 [address] ng/[place] [address] [phone] Comprehensive 07/21/2019 [facility] Glucose 115 mg/dL High 74-106 Metabolic Panel [address] [place] [address] [phone] BUN 17 mg/dL Normal 7-18 Creatinine 0.9 mg/dL Normal 0.6-1.3 Glom Filtration Rate, Estimate >60 mL/min >60 If >60 mL/min >60 5 BUN/Creat 18.8 ratio Sodium 136 mmol/L Normal [...] Normal 0.2-1.0 Sgot/Ast 14 U/L Low 15-37 6 SGPT/Alt 17 U/L Normal 12-78 Alkaline Phosphatase 58 U/L Normal 45-117 Ast-GP67 07/21/2019 [facility] Penicillin G >=0.[address] [place] [address] [phone] Oxacillin <=0.25 Susceptible Tetracycline <=1 Susceptible Nitrofurantoin <=16 Susceptible Trimethoprim/Sulfamethoxazole <=10 Susceptible Gentamicin <=0.5 Susceptible Ciprofloxacin <=0.5 Susceptible Moxifloxacin <=0.25 Susceptible Levofloxacin 0.25 Susceptible Vancomycin <=0.5 Susceptible Urine 07/21/2019 [facility] Urine STAPHYLOCOCCUS A Abnormal [address] Culture <SEE NOTE> [place] [address] [phone] Quantity 10,000 - 50,000 <SEE NOTE> 8 Culture If 07/21/2019 [facility] Culture If CULTURE TO 9 Indicated Comment [address] Indicated Comment FOLLO <[place] [address] NOTE> [phone] Source: URINE, CLEAN CAT <SEE NOTE> 10 Urinalysis With 07/21/2019 [facility] Urine Color Yellow Yellow Microscopic [address] [place] [address] [phone] Urine Clarity Slightly Cloudy Clear Urine Glucose - Dipstick NEGATIVE mg/dL Negative Urine Bilirubin - Dipstick NEGATIVE Negative Urine Ketone NEGATIVE mg/dL Negative Urine Specific [place] 1.016 Normal 1.010-1.030 Urine Blood TRACE Negative [...] Seen Source: URINE, CLEAN CAT <SEE NOTE> 11 Urine Dipstick 06/29/2019 [facility] Inhouse Ua Leuko - Negative Ua Nitrite - Negative Ua Urobilinogen .2 0.2 - 1.0 E.U./dL Ua Protein - Negative Ua PH 6 Low 6.5-7.5 Ua Blood - Negative Ua Specific [place] 1.025 1.010-1.030 Ua Ketones - Negative Ua Bilirubin - Negative Ua Glucose - Negative RBC Morphology Only 06/21/2019 [facility] Poikilocytosis 2+ [address] [place] [address] [phone] Schistocytes 1+ Target Cells 1+ Ovalocytes 1+ Elliptocytes 0-1+ Sebastian Cells 0-1+ Acanthocytes 1+ Comment (SEE NOTE) 13 CBC W/Automated 06/21/2019 [facility] White Blood 6.5 K/uL Normal 3.4-10.[address] [place] [address] [phone] Red Blood Count 4.74 M/uL Normal 4.20-5.80 [...] 33.0-73.0 Lymph % 12.0 % Low 20.0-42.0 [place] % 10.5 % High 0.0-10.0 Eo% 1.5 % Normal 0.0-6.6 Bas% 0.8 % Normal 0.0-1.1 Immature Grans 0.6 % Normal 0.0-5.0 NRBC % 0.0 /100WBC < 10/ 100 WBC Neut# 4.84 K/uL Normal 1.8-7.0 Lymph # 0.78 K/uL Low 1.0-4.0 [place] # 0.68 K/uL Normal 0.0-0.8 Eos # 0.10 K/uL Normal 0.0-0.5 Baso # 0.05 K/uL Normal 0.0-0.1 Immature Grans Absolute 0.04 K/uL NRBC # 0.00 K/uL Laboratory test finding 06/21/2019 [facility] CK 57 U/L Normal 39-[address] [place] [address] [phone] Troponin-I < 0.015 ng/mL 14 Comprehensive 06/21/2019 [facility] Glucose 96 mg/dL Normal 74-106 Metabolic Panel [address] [place], [place] [id number] [phone] BUN 16 mg/dL Normal 7-18 Creatinine 0.9 mg/dL Normal 0.6-1.3 Glom Filtration Rate, Estimate >60 mL/min >60 If >60 mL/min >60 15 BUN/Creat 17.7 ratio Sodium 135 mmol/L Low [...] 67 U/L Normal 45-117 Urine Culture 06/21/2019 [facility] Urine Culture [address]RE[address]AL KENA [address] [place], [place] [address] [phone] Quantity 10,000 - 50,000 <SEE NOTE> 16 Culture If 06/21/2019 [facility] Culture If CULTURE TO 17 Indicated Comment [address] Indicated Comment FOLLO <[place] [address] NOTE> [phone] Source: URINE, CLEAN CAT <SEE NOTE> 18 Urinalysis With 06/21/2019 [facility] Urine Color Light-Yellow Yellow Microscopic [address] [place], [place] [id number] [phone] Urine Clarity Slightly Cloudy Clear Urine Glucose - Dipstick NEGATIVE mg/dL Negative Urine Bilirubin - Dipstick NEGATIVE Negative Urine Ketone NEGATIVE mg/dL Negative Urine Specific [place] 1.014 Normal 1.010-1.030 Urine Blood NEGATIVE Negative Urine PH 6.0 Low 6.5-7.5 Urine Protein - Dipstick NEGATIVE mg/dL Negative Urine Urobilinogen - Dipstick < 2.0 mg/dL < 2.0 Urine Nitrite - Dipstick NEGATIVE Negative Urine Leuk Esterase LARGE Abnormal Negative Urine RBC 3-5 rbc/hpf 0-2 Urine WBC >50 wbc/hpf 0-5 Urine Mucus SMALL None Seen Source: URINE, CLEAN CAT <SEE NOTE> 19 1 N39.0 2 NO GROWTH: FINAL REPORT 3 POSSIBLE SYNCOPAL EPISODE 4 0.0 - 0.045 ng/mL: Normal 0.046 - 0.5 ng/mL: Suggestive 0.6 - 1.5 ng/mL: Consistent 5 Note: Persistent reduction for 3 months or more in an eGFR <60 mL/min/1.73 m2 defines CKD. Patients with eGFR values >/=60 mL/min/1.73 m2 may also have CKD if evidence of persistent proteinuria is present. The original MDRD equation for estimated GFR is not valid for patients less than 18 years of age. Additional information may be found at www.kdoqi.org. 6 Values below the stated reference ranges of AST and ALT can be seen in normal populations. Clinical correlation is suggested. 7 STAPHYLOCOCCUS AUREUS 8 10,000 - 50,000 CFU/mL 9 CULTURE TO FOLLOW 10 URINE, CLEAN CATCH 11 URINE, CLEAN CATCH 12 UNWITNESSED FALL 13 Instrument flagged sample for slide review. Less than 10% Bands seen, no other immature WBC's seen. Platelet estimate = NORMAL 14 0.0 - 0.045 ng/mL: Normal 0.046 - 0.5 ng/mL: Suggestive 0.6 - 1.5 ng/mL: Consistent 15 Note: Persistent reduction for 3 months or more in an eGFR <60 mL/min/1.73 m2 defines CKD. Patients with eGFR values >/=60 mL/min/1.73 m2 may also have CKD if evidence of persistent proteinuria is present. The original MDRD equation for estimated GFR is not valid for patients less than 18 years of age. Additional information may be found at www.kdoqi.org. 16 10,000 - 50,000 CFU/mL 17 CULTURE TO FOLLOW 18 URINE, CLEAN CATCH 19 URINE, CLEAN CATCH Procedures Date Code Description Status 07/31/2019 55064 Measurement Post Voiding Residual Urine By Completed Ultrasound,Non-Imaging 11/28/2017 77793694 Colonoscopy Completed Medical Devices Description No Information Available Encounters Type Date Location Provider Dx Diagnosis Office Visit 07/31/2019 Urology Jess Khan, N39.0 Urinary tract 3:15p M.D. infection, site not specified N40.1 Benign prostatic hyperplasia with lower urinary tract symp Office Visit 07/27/2019 1:10p Family Medicine Syeda Sellers, N39.[address] PNP-BC, [employer], infection, site Ibclc not specified N40.1 Benign prostatic hyperplasia with lower urinary tract symp Office Visit 06/29/2019 Family Ravindra, N39.0 Urinary tract 1:00p Medicine [place] ANN MARIE Antonio infection, site RD not specified B02.9 [place] without complications Office Visit 06/14/2019 9:00a [facility] Medicine Kelly Manzanares, B02.[address] [employer] complications M54.6 Pain in thoracic spine R21 Rash and other nonspecific skin eruption Z91.81 History of falling Office Visit 03/10/2019 1:30p [facility] Family Nurse Z11.[address] screening for respiratory tuberculosis Assessments Date Code Description Provider 07/31/2019 N39.0 Urinary tract infection, site not Jess Khan M.D. specified 07/31/2019 N40.1 Benign prostatic hyperplasia with Jess Khan M.D. lower urinary tract symptoms 07/27/2019 N39.0 Urinary tract infection, site not Syeda Sellers PNP-BC, [employer], specified Ibclc 07/27/2019 N40.1 Benign prostatic hyperplasia with Syeda Sellers PNP-BC, [employer], lower urinary tract symptoms Ibclc 06/29/2019 N39.0 Urinary tract infection, site not Marisela Waite, [employer] specified 06/29/2019 B02.9 Zoster without complications Marisela [...] Family Nurse respiratory tuberculosis Plan of Treatment Future Appointment(s):08/31/2019 1:30 pm - Jess Khan M.D. at Urology Functional Status Description No Information Available Mental Status Description No Information Available Referrals Refer to Dr Reason for Referral Status Appt Date Jess Khan M.D. UTI's with hx of BPH Scheduled 07/31/2019 [address], [place] [address] [phone]
--- OUTSIDE RECORDS SUMMARY | 2019-08-28 12:29 | XMS REPORT | Continuity of Care Document ---
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 Problems Active Problems Provider Date Benign essential hypertension Syeda Sellers PNP-BC, FNP, Onset: 12/14/2017 Ibclc Hyperlipidemia Syeda Sellers PNP-BC, FNP, Onset: 12/14/2017 Ibclc Gastroesophageal reflux disease Syeda Sellers PNP-BC, FNP, Onset: 12/14/2017 Ibclc Cobalamin deficiency Syeda Sellers PNP-BC, FNP, Onset: 12/14/2017 Ibclc Dementia Syeda Sellers PNP-BC, FNP, Onset: 12/14/2017 Ibclc Benign prostatic hypertrophy with Sydea Sellers PNP-BC, FNP, Onset: 2017 outflow obstruction [...] Provider Date Enable Bar To use at [place] 1units R53.1 Kelly Manzanares FNP 03/23/2019 Place for safety and fall prevention R29.6 Citalopram Hydrobromide 1 by mouth every 90tabs F33.0 Syeda Sellers, 12/26 10mg day ANN MARIE SEE, Ibclc Tablets Terazosin HCL 1 by mouth every 90caps N40.1 Syeda Sellers, 10mg Capsules day PNP-BC, [employer], Ibclc Donepezil HCL 1 by mouth every 90tabs F02.80 Syeda Sellers, 5mg Tablets day PNP-BC, [employer], Ibclc Aspirin Adult Low Dose 1 by mouth every 90tabs Syeda Sellers, 81mg day PNP-BC, [employer], Ibclc Tablets DR History Medications Lidocaine apply thin layer 60gm B02.9 Kelly Manzanares, 06/14/2019 - 4% Cream to right upper [employer] 06/29/2019 back lesions as needed for shingles pain Valacyclovir HCL 2 tabs by mouth 42tabs B02.9 Kelly Manzanares, 06/14/2019 - 500mg three times a day [employer] 06/29/2019 Tablets for 7 days. Medications Administered in Office Medication SIG Qnty Indications Ordering Provider Date PPD Family Nurse 03/08/2019 Injection Syeda Rosas PNP-BC, 12/26/2018 Injection [employer], Ibclc Nena Smith MD 04/11/2018 Injection PPD Family Nurse 04/11/2018 Injection Vitamin B12 Injection 1000 Syeda Sellers PNP-BC, 01/25/2018 mcg/Ml [employer], Ibclc Injection Vitamin B12 Injection 1000 Syeda Sellers PNP-BC, 12/14/2017 mcg/Ml [employer], Ibclc Injection Immunizations CPT Code Status Date Vaccine Lot # [id number] Given 12/26/2018 Pneumococcal Conjugate Vaccine 13 Valent For [id number] Intramuscular Use 68934 Given 04/07/2018 Influenza High Dose [id number] Vital Signs Date Vital Result Comment 07/27/2019 1:22pm BP Systolic 120 mmHg BP Diastolic 74 mmHg Body Temperature 98.7 F Heart Rate 56 /min Respiratory Rate 18 /min Height 70 inches 5'10" Weight 151.00 lb BMI (Body Mass Index) 21.7 kg/m2 BSA (Body Surface Area) 1.85 m2 [place] body weight in kilograms 75 kg O2 % BldC Oximetry 96 % 06/29/2019 12:55pm BP Systolic Sitting Left Arm 108 mmHg BP Diastolic Sitting Left Arm 62 mmHg Body Temperature 98.0 F Heart Rate 53 /min Respiratory Rate 18 /min Weight 150.00 lb Results Test Acquired Date Facility Test Result H/L Range Note Urinalysis With 07/21/2019 [facility] Urine Color Yellow Yellow 1 Microscopic [address] [place], [place] [id number] [phone] Urine Clarity Slightly Cloudy Clear Urine Glucose - Dipstick NEGATIVE mg/dL Negative Urine Bilirubin - Dipstick NEGATIVE Negative Urine Ketone NEGATIVE mg/dL Negative Urine Specific [place] 1.016 Normal 1.010-1.030 Urine Blood TRACE Negative [...] CAT <SEE NOTE> 2 Culture If 07/21/2019 [facility] Culture If CULTURE TO 3 Indicated Comment [address] [facility] Indicated Comment FOLLO <[place] [address] NOTE> [phone] Source: URINE, CLEAN CAT <SEE NOTE> 4 Urine 07/21/2019 [facility] Urine STAPHYLOCOCCUS A Abnormal 5 Culture [address] [facility] Culture <SEE NOTE> [place] [address] [phone] Quantity 10,000 - 50,000 <SEE NOTE> 6 Ast-GP67 07/21/2019 [facility] Penicillin G >=0.5 Resistant [address] [place] [address] [phone] Oxacillin <=0.25 Susceptible Tetracycline <=1 Susceptible Nitrofurantoin <=16 Susceptible Trimethoprim/Sulfamethoxazole <=10 Susceptible Gentamicin <=0.5 Susceptible Ciprofloxacin <=0.5 Susceptible Moxifloxacin <=0.25 Susceptible Levofloxacin 0.25 Susceptible Vancomycin <=0.5 Susceptible Comprehensive Metabolic 07/21/2019 [facility] Glucose 115 mg/dL High 74-106 Panel [address] [place], [place] [address] [phone] BUN 17 mg/dL Normal 7-18 Creatinine 0.9 [...] 58 U/L Normal 45-117 Laboratory test 07/21/2019 [facility] Troponin-I < 0.015 [address] ng/[place] [address] [phone] CBC W/Automated 07/21/2019 [facility] White Blood 5.7 K/uL Normal 3.4-[address] Count 0.5 [place] [address] [phone] Red Blood Count 5.05 M/uL Normal 4.20-5.80 [...] 33.0-73.0 Lymph % 14.9 % Low 20.0-42.0 [place] % 9.9 % Normal 0.0-10.0 Eo% 1.4 % Normal 0.0-6.6 Bas% 1.1 % Normal 0.0-1.1 Immature Grans 0.5 % Normal 0.0-5.0 NRBC % 0.0 /100WBC < 10/ 100 WBC Neut# 4.08 K/uL Normal 1.8-7.0 Lymph # 0.84 K/uL Low 1.0-4.0 [place] # 0.56 K/uL Normal 0.0-0.8 Eos # 0.08 K/uL Normal 0.0-0.5 Baso # 0.06 K/uL Normal 0.0-0.1 Immature Grans Absolute 0.03 K/uL NRBC # 0.00 K/uL Urine Dipstick 06/29/2019 [facility] In[facility] Ua Leuko - Negative Ua Nitrite - Negative Ua Urobilinogen .2 0.2 - 1.0 E.U./dL Ua Protein - Negative Ua PH 6 Low 6.5-7.5 Ua Blood - Negative Ua Specific [place] 1.025 1.010-1.030 Ua Ketones - Negative Ua Bilirubin - Negative Ua Glucose - Negative RBC Morphology Only 06/21/2019 [facility] Poikilocytosis 2+ [address] [place] [address] [phone] Schistocytes 1+ Target Cells 1+ Ovalocytes 1+ Elliptocytes 0-1+ Jackson Cells 0-1+ Acanthocytes 1+ Comment (SEE NOTE) 11 CBC W/Automated 06/21/2019 [facility] White Blood 6.5 K/uL Normal 3.4-10.[address] [place] [address] [phone] Red Blood Count 4.74 M/uL Normal 4.20-5.80 [...] 33.0-73.0 Lymph % 12.0 % Low 20.0-42.0 [place] % 10.5 % High 0.0-10.0 Eo% 1.5 % Normal 0.0-6.6 Bas% 0.8 % Normal 0.0-1.1 Immature Grans 0.6 % Normal 0.0-5.0 NRBC % 0.0 /100WBC < 10/ 100 WBC Neut# 4.84 K/uL Normal 1.8-7.0 Lymph # 0.78 K/uL Low 1.0-4.0 [place] # 0.68 K/uL Normal 0.0-0.8 Eos # 0.10 K/uL Normal 0.0-0.5 Baso # 0.05 K/uL Normal 0.0-0.1 Immature Grans Absolute 0.04 K/uL NRBC # 0.00 K/uL Laboratory test finding 06/21/2019 [facility] CK 57 U/L Normal 39-308 [address] [place] [address] [phone] Troponin-I < 0.015 ng/mL 12 Comprehensive 06/21/2019 [facility] Glucose 96 mg/dL Normal 74-106 Metabolic Panel [address] [place] [address] [phone] BUN 16 mg/dL Normal 7-18 Creatinine 0.9 [...] 67 U/L Normal 45-117 Urine Culture 06/21/2019 [facility] Urine Culture [address]THRAL KENA [address] [place], [place] [address] [phone] Quantity 10,000 - 50,000 <SEE NOTE> 14 Culture If 06/21/2019 [facility] Culture If CULTURE TO 15 Indicated Comment [address] Indicated Comment [address]LLO <[place] [address] NOTE> [phone] Source: URINE, CLEAN CAT <SEE NOTE> 16 Urinalysis With 06/21/2019 [facility] Urine Color Light-Yellow Yellow Microscopic [address] [place], [place] [address] [phone] Urine Clarity Slightly Cloudy Clear Urine Glucose - Dipstick NEGATIVE mg/dL Negative Urine Bilirubin - Dipstick NEGATIVE Negative Urine Ketone NEGATIVE mg/dL Negative Urine Specific [place] 1.014 Normal 1.010-1.030 Urine Blood NEGATIVE Negative [...] CATCH Procedures Date Code Description Status 11/28/2017 [id number] Colonoscopy Completed Medical Devices Description No Information Available Encounters Type Date Location Provider Dx Diagnosis Office Visit 07/27/2019 Family Syeda Weaver, N39.0 Urinary tract 1:10p West [place]IN SANDHU-BC, [employer], infection, site Ibclc not specified N40.1 Benign prostatic hyperplasia with lower urinary tract symp Office Visit 06/29/2019 Family [place] N39.0 Urinary tract 1:00p Medicine ANN MARIE Perry infection, site RD not specified B02.9 Zoster without complications Office Visit 06/14/2019 9:00a [facility] Kelly Hussein, B02.9 Zoster without West COLIN [employer] complications M54.6 Pain in thoracic spine R21 Rash and other nonspecific skin eruption Z91.81 History of falling Office Visit 03/10/2019 1:30p [facility] Family Nurse Z11.1 Encounter for [facility] screening for respiratory tuberculosis Assessments Date Code Description Provider 07/27/2019 N39.0 Urinary tract infection, site not Syeda Sellers PNP-BC, [employer], specified Ibclc 07/27/2019 N40.1 Benign prostatic hyperplasia with Syeda Sellers PNP-BC, [employer], lower urinary tract symptoms Ibclc 06/29/2019 N39.0 Urinary tract infection, site not Marisela Waite FNP specified 06/29/2019 B02.9 Zoster without complications Tangela WaiteANN MARIE reyna 06/14/2019 B02.9 Zoster without complications Kelly Manzanares [...] of BPH Scheduled 07/31/2019 [address], [place] [address] [phone]
--- OUTSIDE RECORDS SUMMARY | 2019-08-28 12:29 | XMS REPORT | Continuity of Care Document ---
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 Problems Active Problems Provider Date [...] denies history of smoking Smoking Status Reviewed: 06/29/19 Patient denies history of smoking Allergies, Adverse Reactions, Alerts Description No Known Drug Allergies Medications Active Medications SIG Qnty Indications Ordering Provider Date Enable Bar To use at [place] 1units R53.1 Kelly Manzanares FNP 03/23/2019 Place for safety and fall prevention R29.6 Citalopram Hydrobromide 1 by mouth every 90tabs F33.0 Syeda Sellers, 12/26 10mg day ANN MARIE SEE, Ibclc Tablets Terazosin HCL 1 by mouth every 90caps N40.1 Syeda Sellers, 10mg Capsules day PNP-BC, TILE SORTER, Ibclc Donepezil HCL 1 by mouth every 90tabs F02.80 Syeda Sellers, 5mg Tablets day PNP-BC, TILE S[place], Ibclc Aspirin Adult Low Dose 1 by mouth every 90tabs Syeda Sellers, 81mg day PNP-BC, TILE SORTER, Ibclc Tablets DR History Medications Lidocaine apply thin layer 60gm B02.9 Kelly Manzanares, 06/14/2019 - 4% Cream to right upper TILE SORTER 06/29/2019 back lesions as needed for shingles pain Valacyclovir HCL 2 tabs by mouth 42tabs B02.9 Kelly Manzanares, 06/14/2019 - 500mg three times a day TI[facility] 06/29/2019 Tablets for 7 days. Medications Administered in Office Medication SIG Qnty Indications Ordering Provider Date PPD Family Nurse 03/08/2019 Injection Syeda Rosas PNP-BC, 12/26/2018 Injection TILE SORTER, Ibclc Nena Smith MD 04/11/2018 Injection PPD Family Nurse 04/11/2018 Injection Vitamin B12 Injection 1000 Syeda Sellers PNP-BC, 01/25/2018 mcg/Ml TILE SORTER, Ibclc Injection Vitamin B12 Injection 1000 Syeda Sellers PNP-BC, 12/14/2017 mcg/Ml TILE SORTER, Ibclc Injection Immunizations CPT Code Status Date Vaccine Lot # [id number] Given 12/26/2018 Pneumococcal Conjugate Vaccine 13 Valent For [id number] Intramuscular Use [id number] Given 04/07/2018 Influenza High Dose [id number] Vital Signs Date Vital Result Comment 06/29/2019 12:55pm BP Systolic Sitting Left Arm 108 mmHg BP Diastolic Sitting Left Arm 62 mmHg Body Temperature 98.0 F Heart Rate 53 /min Respiratory Rate 18 /min Weight 150.00 lb 06/14/2019 8:56am BP Systolic 76 mmHg BP Diastolic 46 mmHg Heart Rate 18 /min Respiratory Rate 74 /min Weight 152.00 lb Results Test Acquired Date Facility Test Result H/L Range Note Urine Dipstick 06/29/2019 [facility] Ua Leuko - Negative Ua Nitrite - Negative Ua Urobilinogen .2 0.2 - 1.0 E.U./dL Ua Protein - Negative Ua PH 6 Low 6.5-7.5 Ua Blood - Negative Ua Specific [place] 1.025 1.010-1.030 Ua Ketones - Negative Ua Bilirubin - Negative Ua Glucose - Negative Urinalysis With 06/21/2019 [facility] Urine Color Light-Yellow Yellow 1 Microscopic [address] [place], [place] [id number] [phone] Urine Clarity Slightly Cloudy Clear Urine Glucose - Dipstick NEGATIVE mg/dL Negative Urine Bilirubin - Dipstick NEGATIVE Negative Urine Ketone NEGATIVE mg/dL Negative Urine Specific [place] 1.014 Normal 1.010-1.030 Urine Blood NEGATIVE Negative [...] CLEAN CAT <SEE NOTE> 2 Culture If 06/21/2019 [facility] Culture If CULTURE TO 3 Indicated Comment [address] [facility] Indicated Comment [address]O <[place] [address] NOTE> [phone] Source: URINE, CLEAN CAT <SEE NOTE> 4 Urine Culture 06/21/2019 [facility] Urine Culture URETHRAL KENA [address] [place], [place] [id number] [phone] Quantity 10,000 - 50,000 <SEE NOTE> 5 Comprehensive 06/21/2019 [facility] Glucose 96 mg/dL Normal 74-106 Metabolic Panel [address] [place], [place] [id number] [phone] BUN 16 mg/dL Normal 7-18 Creatinine 0.9 mg/dL Normal 0.6-1.3 Glom Filtration Rate, Estimate >60 mL/min >60 If >60 mL/min >60 6 BUN/Creat 17.7 ratio Sodium 135 mmol/L Low [...] 12-78 Alkaline Phosphatase 67 U/L Normal 45-117 Laboratory test finding 06/21/2019 [facility] CK 57 U/L Normal 39-[address] [place], [place] [id number] [phone] Troponin-I < 0.015 ng/mL 7 CBC W/Automated 06/21/2019 [facility] White Blood 6.5 K/uL Normal 3.4-10.[address] [place] [address] [phone] Red Blood Count 4.74 M/uL Normal 4.20-5.80 [...] 33.0-73.0 Lymph % 12.0 % Low 20.0-42.0 [place] % 10.5 % High 0.0-10.0 Eo% 1.5 % Normal 0.0-6.6 Bas% 0.8 % Normal 0.0-1.1 Immature Grans 0.6 % Normal 0.0-5.0 NRBC % 0.0 /100WBC < 10/ 100 WBC Neut# 4.84 K/uL Normal 1.8-7.0 Lymph # 0.78 K/uL Low 1.0-4.0 [place] # 0.68 K/uL Normal 0.0-0.8 Eos # 0.10 K/uL Normal 0.0-0.5 Baso # 0.05 K/uL Normal 0.0-0.1 Immature Grans Absolute 0.04 K/uL NRBC # 0.00 K/uL RBC Morphology Only 06/21/2019 [facility] Poikilocytosis 2+ [address] [place] [address] [phone] Schistocytes 1+ Target Cells 1+ Ovalocytes 1+ Elliptocytes 0-1+ [place] Cells 0-1+ Acanthocytes 1+ Comment (SEE NOTE) 8 1 UNWITNESSED FALL 2 URINE, CLEAN CATCH 3 CULTURE TO FOLLOW 4 URINE, CLEAN CATCH 5 10,000 - 50,000 CFU/mL 6 Note: Persistent reduction for 3 months or more in an eGFR <60 mL/min/1.73 m2 defines CKD. Patients with eGFR values >/=60 mL/min/1.73 m2 may also have CKD if evidence of persistent proteinuria is present. The original MDRD equation for estimated GFR is not valid for patients less than 18 years of age. Additional information may be found at www.kdoqi.org. 7 0.0 - 0.045 ng/mL: Normal 0.046 - 0.5 ng/mL: Suggestive 0.6 - 1.5 ng/mL: Consistent 8 Instrument flagged sample for slide review. Less than 10% Bands seen, no other immature WBC's seen. Platelet estimate = NORMAL Procedures Date Code Description Status 11/28/2017 [id number] Colonoscopy Completed Medical Devices Description No Information Available Encounters Type Date Location Provider Dx Diagnosis Office Visit 06/14/2019 Family Medicine Kelly Manzanares, B02.9 [place] without 9:[address] TI[facility] SORTER complications M54.6 Pain in thoracic spine R21 Rash and other nonspecific skin eruption Z91.81 History of falling Office Visit 03/10/2019 1:30p Family Medicine Family Nurse Z11.[address] screening for respiratory tuberculosis Office Visit 12/28/2018 3:00p Family Medicine Family Nurse Z11.[address] screening for respiratory tuberculosis Assessments Date Code Description Provider 06/29/2019 N39.0 Urinary tract infection, site not Marisela Waite FNP specified 06/29/2019 B02.9 [place] without complications Marisela Waite FNP 06/14/2019 B02.9 [place] without complications Kelly Manzanares [facility] 06/14/2019 M54.6 Pain in thoracic spine Kelly Manzanares [facility] 06/14/2019 R21 Rash and other nonspecific skin eruption Kelly Manzanares [facility] 06/14/2019 Z91.81 History of falling Kelly Manzanares FNP 03/10/2019 Z11.1 Encounter for screening for respiratory Nena Jimenez MD tuberculosis 03/10/2019 Z11.1 Encounter for screening for respiratory Family Nurse tuberculosis 03/08/2019 Z11.1 Encounter for screening for respiratory Nena Jimenez MD tuberculosis 03/08/2019 Z11.1 Encounter for screening for respiratory Family Nurse tuberculosis 12/28/2018 Z11.1 Encounter for screening for respiratory Nena Jimenez MD tuberculosis 12/28/2018 Z11.1 Encounter for screening for respiratory Family Nurse tuberculosis Plan of Treatment 06/29/2019 - Marisela Waite FNPN39.0 Urinary tract infection, site not specifiedComments:Reviewed today's labs and labs from ED. UTI appears improved/ resolved. Complete course of antibiotics (helps reduce chance of building antibiotic resistance). Encourage drinking more fluids - recommend an 8 ounce glass every hour. If one can be left at his side to help enocurage would be beneficial. Other sources of water include having jello for snacks, as this is predominantly water based.B02.9 [place] without complicationsComments:resolved. D/C order for lidocaine written Functional Status Description No Information Available Mental Status Description No Information Available Referrals Description No Information Available
[2019-08-28 12:43] LABS: Albumin 3.8 g/dL (3.2-5.2); Albumin/Globulin Ratio 1.5 (1-3); BUN/Creatinine Ratio 15.9 (8-20); EGFR African American 79.9 (>60); Globulin 2.5 g/dL (2-4); Potassium 4.2 mmol/L (3.5-5.0); Total Bilirubin 0.5 mg/dL (0.2-1.0); Total Protein 6.3 g/dL (6.4-8.9)
[2019-08-28 12:56] LABS: Microcytosis 2+; Schistocytes 1+
[2019-08-28 13:11] LABS: TSH (Thyroid Stimulating Horm) 3.81 mcIU/mL (0.34-5.60)
[2019-08-28 13:41] VITALS: BP 138/62
== END 2019-08-28 13:40 | disposition home or self-care (01) ==
LOC: ED 11:30
DX: F03.90 Unspecified dementia, unspecified severity, without behavioral disturbance, psychotic disturbance, mood disturbance, and anxiety (principal); R53.1 Weakness; R51 Headache; R41.0 Disorientation, unspecified; E78.00 Pure hypercholesterolemia, unspecified; I10 Essential (primary) hypertension; F32.9 Major depressive disorder, single episode, unspecified; Z79.82 Long term (current) use of aspirin; Z79.899 Other long term (current) drug therapy; R53.83 Other fatigue; R94.31 Abnormal electrocardiogram [ECG] [EKG]
CPT/HCPCS: 36415; 70450; 80053; 83605; 84443; 84484; 85025; 85060; 93005; 96360; 99283

== ENCOUNTER 2019-11-01 10:16 | Inpatient (IN) ==
[2019-11-01 11:49] LABS: ABS Basophils 0.1 10^3/ul (0-0.2); ABS Eosinophils 0.1 10^3/ul (0-0.6); ABS Lymphocytes 0.5 10^3/ul (1.0-4.8); ABS Monocytes 0.7 10^3/ul (0-0.8); Eosinophil % 0.6 %; Hematocrit 32 % (42-52); Hemoglobin 10.3 g/dL (14.0-18.0); Lymphocyte % 6.2 %; Mean Corpuscular HGB Conc 32 g/dL (31-36); Mean Corpuscular Hemoglobin 22 pg (27-31); Mean Corpuscular Volume 66 fL (80-94); Nucleated Red Blood Cells % 0.2; Platelet Count 253 10^3/uL (150-450); Red Cell Distribution Width 16 % (10-15); Troponin I 0.01 ng/mL (<0.03); White Blood Count 7.9 10^3/uL (3.5-10.8)
[2019-11-01 12:11] LABS: ALT 11 U/L (7-52); AST 17 U/L (13-39); Albumin 3.6 g/dL (3.2-5.2); Albumin/Globulin Ratio 1.6 (1-3); Alkaline Phosphatase 47 U/L (34-104); Anion Gap 5 mmol/L (2-11); BUN/Creatinine Ratio 24.4 (8-20); Blood Urea Nitrogen 21 mg/dL (6-24); CO2 Carbon Dioxide 30 mmol/L (22-32); Calcium 8.7 mg/dL (8.6-10.3); Chloride 103 mmol/L (101-111); EGFR African American 102.8 (>60); EGFR Non-African American 84.9 (>60); Globulin 2.3 g/dL (2-4); Glucose 97 mg/dL (70-100); Magnesium 1.8 mg/dL (1.9-2.7); Potassium 3.8 mmol/L (3.5-5.0); Sodium 138 mmol/L (135-145); Total Protein 5.9 g/dL (6.4-8.9)
[2019-11-01] MEDS ORDERED: Magnesium Sulfate 2 gm BAG 2 GM/50 ML BAG IVPB ONE (12:22)
[2019-11-01 14:27] LABS: C Reactive Protein 2.33 mg/L (<8.01)
[2019-11-01] MEDS ORDERED: guaiFENesin 100 mg/5 ml LIQ unit dose cup PO PRN (14:46)
[2019-11-01] MEDS ORDERED: Magnesium Hydroxide LIQ 30 ML UDC PO PRN ×2 (14:46→18:00)
[2019-11-01] MEDS ORDERED: levETIRAcetam 1000MG IVPREMIX 1,000 MG/100 ML BAG IVPB ONE (15:03)
[2019-11-01 15:37] LABS: % Iron Saturation 44 % (15-55); Iron 102 ug/dL (50-212); Total Iron Binding Capacity 232 mcg/dL (250-450); Transferrin 166 mg/dL (203-362)
[2019-11-01 15:41] LABS: Ferritin 181.8 ng/mL (24-336)
[2019-11-01] MEDS: Enoxaparin 40 MG/0.4 ML SYR(*) SUBCUT SCH (16:15)
[2019-11-01 21:41] LABS: Urine Appearance Clear; Urine Bilirubin Negative (Negative); Urine Blood Negative (Negative); Urine Color Yellow; Urine Glucose Negative (Negative); Urine Ketones Negative (Negative); Urine Nitrite Negative (Negative); Urine Protein Negative (Negative); Urine Specific Gravity 1.014 (1.010-1.030); Urine Urobilinogen Negative (Negative)
[2019-11-02] MEDS ORDERED: Perflutren Lipid Microsphere 3 ML VIAL ONE (07:54)
[2019-11-02 08:11] LABS: BUN/Creatinine Ratio 19.2 (8-20); Calcium 8.5 mg/dL (8.6-10.3); EGFR African American 124.2 (>60); EGFR Non-African American 102.6 (>60); Magnesium 1.8 mg/dL (1.9-2.7); Potassium 3.8 mmol/L (3.5-5.0)
[2019-11-02 09:23] LABS: Hematocrit 30 % (42-52); Hemoglobin 9.8 g/dL (14.0-18.0); Mean Corpuscular HGB Conc 32 g/dL (31-36); Mean Corpuscular Hemoglobin 21 pg (27-31); Mean Corpuscular Volume 66 fL (80-94); Mean Platelet Volume 7.6 fL (7.4-10.4); Nucleated Red Blood Cells % 0.1; Platelet Count 229 10^3/uL (150-450); Red Blood Count 4.57 10^6 /uL (4.18-5.48); Red Cell Distribution Width 16 % (10-15)
[2019-11-02 09:34] LABS: Microcytosis 3+
[2019-11-02 09:40] LABS: ABS Eosinophils 0.1 10^3/ul (0-0.6)
[2019-11-02] MEDS ORDERED: Haloperidol 5 mg/ml SDV IV/IM 5 MG/ML AMP IV SLOW PU ONE (09:45)
[2019-11-02] MEDS ORDERED: Haloperidol 5 mg/ml SDV IV/IM 5 MG/ML AMP ONE (09:48)
[2019-11-02] MEDS: Valproic Acid IV(*) 500 MG in NS 0.9% 100 ml BAG 100 ML IVPB SCH (13:55)
[2019-11-02] MEDS ORDERED: Valproic Acid IV(*) 100 MG/ML 5 ML VIAL (500 MG) IVPB SCH (14:00)
[2019-11-02] MEDS ORDERED: Magnesium Sulfate 2 gm BAG 2 GM/50 ML BAG IVPB ONE (15:15)
[2019-11-02 15:39] LABS: HDL Cholesterol 50.7 mg/dL
[2019-11-02] MEDS: Enoxaparin 40 MG/0.4 ML SYR(*) SUBCUT SCH (16:22)
[2019-11-03] MEDS: Valproic Acid IV(*) 500 MG in NS 0.9% 100 ml BAG 100 ML IVPB SCH (01:50)
[2019-11-03] MEDS ORDERED: Divalproex DR 500 mg TAB(*) PO SCH (09:00)
[2019-11-03] MEDS ORDERED: Senna TAB 8.6 mg TAB PO PRN (10:57)
[2019-11-03] MEDS ORDERED: Polyethylene Glycol 3350 17 GM PACKET PO PRN (10:57)
[2019-11-03] MEDS: Enoxaparin 40 MG/0.4 ML SYR(*) SUBCUT SCH (14:14)
[2019-11-03] MEDS: Divalproex ER 500 mg TAB (*) PO SCH (22:26)
[2019-11-04] MEDS: Enoxaparin 40 MG/0.4 ML SYR(*) SUBCUT SCH (16:07)
[2019-11-04] MEDS: Divalproex ER 500 mg TAB (*) PO SCH (19:52)
[2019-11-05 06:50] LABS: ABS Basophils 0.1 10^3/ul (0-0.2); ABS Eosinophils 0.1 10^3/ul (0-0.6); ABS Lymphocytes 1.1 10^3/ul (1.0-4.8); ABS Monocytes 1.3 10^3/ul (0-0.8); Eosinophil % 1.6 %; Hematocrit 33 % (42-52); Hemoglobin 10.7 g/dL (14.0-18.0); Lymphocyte % 15.3 %; Mean Corpuscular HGB Conc 32 g/dL (31-36); Mean Corpuscular Hemoglobin 21 pg (27-31); Mean Corpuscular Volume 66 fL (80-94); Mean Platelet Volume 7.7 fL (7.4-10.4); Nucleated Red Blood Cells % 0.1; Platelet Count 250 10^3/uL (150-450); Red Blood Count 4.98 10^6 /uL (4.18-5.48); Red Cell Distribution Width 16 % (10-15); White Blood Count 7.5 10^3/uL (3.5-10.8)
[2019-11-05 06:53] LABS: Calcium 8.7 mg/dL (8.6-10.3); EGFR African American 118.5 (>60); Magnesium 1.9 mg/dL (1.9-2.7); Potassium 4.2 mmol/L (3.5-5.0)
[2019-11-05] MEDS: Enoxaparin 40 MG/0.4 ML SYR(*) SUBCUT SCH ×2 (15:55→15:57)
[2019-11-05] MEDS: Divalproex ER 500 mg TAB (*) PO SCH (21:49)
[2019-11-06 04:37] VITALS: BP 151/74
== END 2019-11-06 09:25 | disposition home or self-care (01) | DRG 101 ==
LOC: ED 10:16 → MEDTELE 10:16
PROVIDERS: ADMIT Internal Medicine; ATTEND Hospitalist

== ENCOUNTER 2019-11-08 11:24 | Inpatient (IN) ==
[2019-11-08] MEDS ORDERED: NS 0.9% 1000 ml BAG 1,000 ML IV ONE (11:47)
[2019-11-08 12:02] LABS: ABS Basophils 0.1 10^3/ul (0-0.2); ABS Eosinophils 0.1 10^3/ul (0-0.6); ABS Lymphocytes 0.9 10^3/ul (1.0-4.8); ABS Monocytes 0.7 10^3/ul (0-0.8); Eosinophil % 1.8 %; Hematocrit 36 % (42-52); Hemoglobin 11.5 g/dL (14.0-18.0); Mean Corpuscular HGB Conc 32 g/dL (31-36); Mean Corpuscular Hemoglobin 21 pg (27-31); Mean Corpuscular Volume 67 fL (80-94); Mean Platelet Volume 7.6 fL (7.4-10.4); Nucleated Red Blood Cells % 0.2; Platelet Count 270 10^3/uL (150-450); Red Blood Count 5.42 10^6 /uL (4.18-5.48); Red Cell Distribution Width 16 % (10-15); White Blood Count 6.9 10^3/uL (3.5-10.8)
[2019-11-08 12:18] LABS: Albumin 3.8 g/dL (3.2-5.2); Albumin/Globulin Ratio 1.3 (1-3); BUN/Creatinine Ratio 29.8 (8-20); Calcium 9.1 mg/dL (8.6-10.3); EGFR African American 82.5 (>60); EGFR Non-African American 68.2 (>60); Globulin 2.9 g/dL (2-4); Magnesium 2.1 mg/dL (1.9-2.7); Potassium 4.3 mmol/L (3.5-5.0); Total Bilirubin 0.5 mg/dL (0.2-1.0); Total Protein 6.7 g/dL (6.4-8.9)
[2019-11-08] MEDS ORDERED: Cyanocobalamin INJ 1,000 MCG/ML VIAL 1 ML VIAL IM ONE (13:12)
[2019-11-08] MEDS: Enoxaparin 40 MG/0.4 ML SYR(*) SUBCUT SCH (17:26)
[2019-11-09 02:13] LABS: Urine Appearance Clear; Urine Bilirubin Negative (Negative); Urine Blood Negative (Negative); Urine Color Yellow; Urine Glucose Negative (Negative); Urine Ketones Trace (Negative); Urine Nitrite Negative (Negative); Urine Protein Negative (Negative); Urine Specific Gravity 1.021 (1.010-1.030); Urine Urobilinogen Negative (Negative)
[2019-11-09] MEDS: Enoxaparin 40 MG/0.4 ML SYR(*) SUBCUT SCH (16:04)
[2019-11-09] MEDS ORDERED: LORazepam 2 mg VIAL 1 ml IV PUSH ONE (16:41)
[2019-11-09] MEDS ORDERED: Lorazepam PYXIS KEY PRN (16:41)
[2019-11-09] MEDS ORDERED: Haloperidol 5 mg/ml SDV IV/IM 5 MG/ML AMP IV SLOW PU ONE (20:03)
[2019-11-09] MEDS ORDERED: Divalproex ER 500 mg TAB (*) PO SCH (21:00)
[2019-11-09] MEDS ORDERED: Valproic Acid IV(*) 100 MG/ML 5 ML VIAL (500 MG) IVPB SCH (23:45)
[2019-11-10] MEDS: NS 0.9% IVPB SCH ×3 (00:05→12:49)
[2019-11-10] MEDS: VALPROIC ACID IVPB SCH ×3 (00:05→12:49)
[2019-11-10] MEDS: Enoxaparin 40 MG/0.4 ML SYR(*) SUBCUT SCH (13:52)
[2019-11-10] MEDS: Carboxymethylcellulose/Glyceri 10 ML OPHTH.GEL lubricant eye gel BOTH EYES SCH (19:47)
[2019-11-10] MEDS: CARBAMAZEPINE 200 MG PO SCH (19:47)
[2019-11-11] MEDS: CARBAMAZEPINE 200 MG PO SCH ×2 (10:34→22:54)
[2019-11-11] MEDS: Carboxymethylcellulose/Glyceri 10 ML OPHTH.GEL lubricant eye gel BOTH EYES SCH ×2 (10:34→22:59)
[2019-11-11] MEDS: Enoxaparin 40 MG/0.4 ML SYR(*) SUBCUT SCH (14:42)
[2019-11-12] MEDS: Carboxymethylcellulose/Glyceri 10 ML OPHTH.GEL lubricant eye gel BOTH EYES SCH ×2 (11:19→19:56)
[2019-11-12] MEDS: CARBAMAZEPINE 200 MG PO SCH ×2 (11:22→19:57)
[2019-11-12] MEDS: Enoxaparin 40 MG/0.4 ML SYR(*) SUBCUT SCH (15:52)
[2019-11-13] MEDS: Carboxymethylcellulose/Glyceri 10 ML OPHTH.GEL lubricant eye gel BOTH EYES SCH ×2 (08:53→21:04)
[2019-11-13] MEDS: CARBAMAZEPINE 200 MG PO SCH ×2 (08:53→21:05)
[2019-11-13] MEDS: Enoxaparin 40 MG/0.4 ML SYR(*) SUBCUT SCH (12:39)
[2019-11-13] MEDS: Magnesium Hydroxide LIQ 30 ML UDC PO PRN (12:40)
[2019-11-13] MEDS ORDERED: Polyethylene Glycol 3350 17 GM PACKET PO ONE (15:14)
[2019-11-14] MEDS: CARBAMAZEPINE 200 MG PO SCH ×2 (08:46→20:59)
[2019-11-14] MEDS: Carboxymethylcellulose/Glyceri 10 ML OPHTH.GEL lubricant eye gel BOTH EYES SCH ×2 (08:46→21:02)
[2019-11-14] MEDS: Magnesium Hydroxide LIQ 30 ML UDC PO PRN (08:47)
[2019-11-14] MEDS ORDERED: Magnesium CITRATE LIQ 300 ML BTL PO ONE (10:11)
[2019-11-14] MEDS: Enoxaparin 40 MG/0.4 ML SYR(*) SUBCUT SCH (14:03)
[2019-11-15 08:01] LABS: ABS Basophils 0.1 10^3/ul (0-0.2); ABS Eosinophils 0.1 10^3/ul (0-0.6); ABS Lymphocytes 1.4 10^3/ul (1.0-4.8); ABS Monocytes 1.3 10^3/ul (0-0.8); Eosinophil % 1.1 %; Hematocrit 33 % (42-52); Hemoglobin 10.4 g/dL (14.0-18.0); Lymphocyte % 12.3 %; Mean Corpuscular HGB Conc 32 g/dL (31-36); Mean Corpuscular Hemoglobin 21 pg (27-31); Mean Corpuscular Volume 66 fL (80-94); Mean Platelet Volume 7.6 fL (7.4-10.4); Nucleated Red Blood Cells % 0.1; Platelet Count 304 10^3/uL (150-450); Red Blood Count 4.94 10^6 /uL (4.18-5.48); Red Cell Distribution Width 15 % (10-15); White Blood Count 11.2 10^3/uL (3.5-10.8)
[2019-11-15] MEDS ORDERED: Magnesium CITRATE LIQ 300 ML BTL PO ONE (08:46)
[2019-11-15] MEDS: CARBAMAZEPINE 200 MG PO SCH ×2 (10:30→23:06)
[2019-11-15] MEDS: Carboxymethylcellulose/Glyceri 10 ML OPHTH.GEL lubricant eye gel BOTH EYES SCH ×2 (10:31→23:06)
[2019-11-15] MEDS: Enoxaparin 40 MG/0.4 ML SYR(*) SUBCUT SCH (14:15)
[2019-11-15 16:12] LABS: Urine Appearance Turbid; Urine Bilirubin Negative (Negative); Urine Blood Negative (Negative); Urine Color Yellow; Urine Glucose Negative (Negative); Urine Ketones Negative (Negative); Urine Nitrite Positive (Negative); Urine Protein 2+(100 mg/dL) (Negative); Urine Specific Gravity 1.018 (1.010-1.030); Urine Urobilinogen Negative (Negative)
[2019-11-15 16:15] LABS: Urine Bacteria Absent (Absent); Urine Red Blood Cell Absent (Absent); Urine White Blood Cell Absent (Absent)
[2019-11-15] MEDS ORDERED: NS 0.9% 1000 ml BAG 1,000 ML IV SCH (16:30)
[2019-11-15] MEDS: DOXYcycline 100 mg CAP (*) PO SCH (23:06)
[2019-11-16 06:44] LABS: ABS Basophils 0.1 10^3/ul (0-0.2); ABS Eosinophils 0.1 10^3/ul (0-0.6); ABS Lymphocytes 1.9 10^3/ul (1.0-4.8); ABS Monocytes 1.6 10^3/ul (0-0.8); Eosinophil % 0.9 %; Hematocrit 34 % (42-52); Lymphocyte % 12.4 %; Mean Corpuscular HGB Conc 32 g/dL (31-36); Mean Corpuscular Hemoglobin 22 pg (27-31); Mean Corpuscular Volume 67 fL (80-94); Mean Platelet Volume 7.6 fL (7.4-10.4); Platelet Count 309 10^3/uL (150-450); Red Blood Count 5.09 10^6 /uL (4.18-5.48); Red Cell Distribution Width 15 % (10-15); White Blood Count 15.1 10^3/uL (3.5-10.8)
[2019-11-16 06:54] LABS: BUN/Creatinine Ratio 34.5 (8-20); Calcium 9.1 mg/dL (8.6-10.3); EGFR African American 105.6 (>60); EGFR Non-African American 87.3 (>60); Potassium 4.8 mmol/L (3.5-5.0)
[2019-11-16 07:18] LABS: C Reactive Protein 97.12 mg/L (<8.01)
[2019-11-16] MEDS: CARBAMAZEPINE 200 MG PO SCH ×2 (07:38→19:57)
[2019-11-16] MEDS: Carboxymethylcellulose/Glyceri 10 ML OPHTH.GEL lubricant eye gel BOTH EYES SCH ×2 (07:38→20:13)
[2019-11-16] MEDS: DOXYcycline 100 mg CAP (*) PO SCH (07:38)
[2019-11-16] MEDS ORDERED: NS 0.9% 1000 ml BAG 1,000 ML IV SCH (08:00)
[2019-11-16] MEDS ORDERED: Azithromycin 500 mg/250 ml NS 500 MG/250 ML BAG IVPB SCH (09:00)
[2019-11-16] MEDS: cefTRIAXone 1 gm/50 mL NS BAG 1 GM/50 ML BAG IVPB SCH (10:06)
[2019-11-16] MEDS: Azithromycin 500 mg/250 ml NS 500 MG/250 ML BAG IVPB SCH (11:33)
[2019-11-16] MEDS: Enoxaparin 40 MG/0.4 ML SYR(*) SUBCUT SCH (12:48)
[2019-11-17] MEDS: cefTRIAXone 1 gm/50 mL NS BAG 1 GM/50 ML BAG IVPB SCH (10:22)
[2019-11-17] MEDS: CARBAMAZEPINE 200 MG PO SCH ×2 (10:26→19:33)
[2019-11-17] MEDS: Carboxymethylcellulose/Glyceri 10 ML OPHTH.GEL lubricant eye gel BOTH EYES SCH ×2 (10:26→19:34)
[2019-11-17 11:37] LABS: Anti-Glial/Neuronal Nuc Ab-1 A Negative titer (<1:240); Anti-Neuronal Nuclear Ab Type1 Negative titer (<1:240); Anti-Neuronal Nuclear Ab Type2 Negative titer (<1:240); Anti-Neuronal Nuclear Ab Type3 Negative titer (<1:240); Anti-Striated Muscle Antibody Negative titer (<1:120); CRMP-5 IgG Antibody Negative titer (<1:240); Purkinje Cell Cytoplasm Typ Tr Negative titer (<1:240); Purkinje Cell Cytoplasm Type 1 Negative titer (<1:240); Purkinje Cell Cytoplasm Type 2 Negative titer (<1:240)
[2019-11-17] MEDS: Azithromycin 500 mg/250 ml NS 500 MG/250 ML BAG IVPB SCH (11:49)
[2019-11-17 12:26] LABS: ABS Basophils 0.1 10^3/ul (0-0.2); ABS Eosinophils 0.1 10^3/ul (0-0.6); ABS Lymphocytes 1.1 10^3/ul (1.0-4.8); Eosinophil % 1.5 %; Hematocrit 32 % (42-52); Hemoglobin 10.2 g/dL (14.0-18.0); Mean Corpuscular HGB Conc 32 g/dL (31-36); Mean Corpuscular Hemoglobin 21 pg (27-31); Mean Corpuscular Volume 66 fL (80-94); Mean Platelet Volume 7.4 fL (7.4-10.4); Platelet Count 317 10^3/uL (150-450); Red Blood Count 4.77 10^6 /uL (4.18-5.48); Red Cell Distribution Width 16 % (10-15); White Blood Count 10.3 10^3/uL (3.5-10.8)
[2019-11-17 12:35] LABS: BUN/Creatinine Ratio 44.3 (8-20); C Reactive Protein 111.95 mg/L (<8.01); Calcium 8.7 mg/dL (8.6-10.3); EGFR African American 130.3 (>60); EGFR Non-African American 107.7 (>60); Potassium 4.1 mmol/L (3.5-5.0)
[2019-11-17] MEDS: Enoxaparin 40 MG/0.4 ML SYR(*) SUBCUT SCH (13:56)
[2019-11-18] MEDS: cefTRIAXone 1 gm/50 mL NS BAG 1 GM/50 ML BAG IVPB SCH (08:56)
[2019-11-18] MEDS: CARBAMAZEPINE 200 MG PO SCH ×2 (09:03→19:41)
[2019-11-18] MEDS: Carboxymethylcellulose/Glyceri 10 ML OPHTH.GEL lubricant eye gel BOTH EYES SCH ×2 (09:24→19:44)
[2019-11-18] MEDS: Azithromycin 500 mg/250 ml NS 500 MG/250 ML BAG IVPB SCH (12:10)
[2019-11-18] MEDS: Enoxaparin 40 MG/0.4 ML SYR(*) SUBCUT SCH (13:37)
[2019-11-19] MEDS: CARBAMAZEPINE 200 MG PO SCH ×2 (08:17→19:19)
[2019-11-19] MEDS: cefTRIAXone 1 gm/50 mL NS BAG 1 GM/50 ML BAG IVPB SCH (08:51)
[2019-11-19] MEDS: Carboxymethylcellulose/Glyceri 10 ML OPHTH.GEL lubricant eye gel BOTH EYES SCH ×2 (08:54→19:19)
[2019-11-19] MEDS: Azithromycin 500 mg/250 ml NS 500 MG/250 ML BAG IVPB SCH (11:46)
[2019-11-19] MEDS: Enoxaparin 40 MG/0.4 ML SYR(*) SUBCUT SCH (12:58)
[2019-11-20] MEDS: CARBAMAZEPINE 200 MG PO SCH ×2 (09:08→21:44)
[2019-11-20] MEDS: Carboxymethylcellulose/Glyceri 10 ML OPHTH.GEL lubricant eye gel BOTH EYES SCH ×2 (09:08→21:53)
[2019-11-20] MEDS: cefTRIAXone 1 gm/50 mL NS BAG 1 GM/50 ML BAG IVPB SCH (09:08)
[2019-11-20] MEDS ORDERED: Magnesium CITRATE LIQ 300 ML BTL PO ONE (10:52)
[2019-11-20] MEDS ORDERED: Magnesium Hydroxide LIQ 30 ML UDC PO PRN (11:08)
[2019-11-20] MEDS: Enoxaparin 40 MG/0.4 ML SYR(*) SUBCUT SCH (14:22)
[2019-11-21] MEDS: CARBAMAZEPINE 200 MG PO SCH ×2 (08:37→20:19)
[2019-11-21] MEDS: Carboxymethylcellulose/Glyceri 10 ML OPHTH.GEL lubricant eye gel BOTH EYES SCH ×2 (08:38→21:56)
[2019-11-21] MEDS: Enoxaparin 40 MG/0.4 ML SYR(*) SUBCUT SCH (14:24)
[2019-11-22] MEDS: CARBAMAZEPINE 200 MG PO SCH (09:37)
[2019-11-22] MEDS: Carboxymethylcellulose/Glyceri 10 ML OPHTH.GEL lubricant eye gel BOTH EYES SCH (09:38)
[2019-11-22 12:48] VITALS: BP 117/60
== END 2019-11-22 11:25 | DRG 56 ==
LOC: ED 11:24 → MED 13:37
PROVIDERS: ADMIT Internal Medicine; ATTEND Internal Medicine